=== PATIENT | male | born 1935 | race Caucasian/White ===

== ENCOUNTER 2020-06-27 22:38 | Emergency (ER) | payer MEDICARE, OTHER, SELFPAY ==
[2020-06-27 22:41] VITALS: BP 117/74; BP 126/57; PULSE 83; PULSE 97; RESP 16; TEMP 37.1; O2SAT 90; O2SAT 91; BMI 20.4
--- NOTE | 2020-06-27 22:47 | ED.CHESTPAIN ---
HPI - Chest Pain General Chief Complaint: Abdominal Pain Stated Complaint: luq pain Time Seen by Provider: 06/27/20 22:47 Source: EMS and old records reviewed Mode of arrival: EMS Limitations: other (vague and poor historian) History of Present Illness MD complaint: chest pain Pertinent past history: other (renal cancer, COPD O2 dependent, hx of pneumonia) Onset (ago): day(s) (upon waking today) Timing of current episode: constant Prior episodes: No Onset: during rest Pain location: left chest Pain radiation: none Severity: moderate Quality: heaviness Relieving factors: nothing Exacerbating factors: nothing Context: recent illness Associated symptoms: dyspnea Treatment prior to arrival: oxygen (O2 increased to 4L NC due to lower O2 sats) Related Data Allergies Allergy/AdvReac Type Severity Reaction Status Date / Time No Known Allergies Allergy Unverified 05/22/20 15:20 [No Known Allergies*] Review of Systems Review of Systems: Constitutional : No Weight loss, No Fever, No Chills ENT/Mouth : No sore throat, No Rhinorrhea Eyes: No Eye Pain, No Swelling Cardiovascular : pos Chest Pain, pos SOB, no Dyspnea on Exertion, No Orthopnea, No Edema, No Palpitations Respiratory : No Cough, No Sputum Gastrointestinal : no Nausea, No Vomiting, No Diarrhea, No abdominal Pain, No Hematochezia, No Melena Genitourinary : No Dysuria, No Urinary Frequency Musculoskeletal : No joint pain, No Myalgias, No Joint Swelling Skin : No Skin Lesions, No rash Neuro : No Weakness, No Numbness, No Dizziness, No Headache Psych : No Anxiety/Panic, No Depression Heme/Lymph: No Bruising, No Lymphadenopathy Endocrine : No Polyuria, No Polydipsia All other systems reviewed and are negative [facility] Past Medical History Medical History (Updated 06/28/20 @ 01:01 by Genesis Waller DO) Cirrhosis COPD (chronic obstructive pulmonary disease) Diabetes Emphysema of lung Heart block AV second degree HTN (hypertension) Legally blind Renal carcinoma Respiratory failure Social History Social History (Updated 06/27/20 @ 22:49 by Genesis Waller DO) Smoking Status: Former smoker Use of substances other than those prescribed or required for medical reasons: No Advance Directives: No Advance Directives Information Provided: No Physical Exam Vital Signs: Vital Signs: Vital Signs Temp Pulse Resp BP Pulse Ox 06/27/20 22:41 98.8 F 83 16 126/57 L 91 L Body Mass Index 20.4 Appearance: Alert. Oriented X3. No acute distress. Eyes: Pupils equal, round and reactive to light. ENT: Pharynx normal. Neck: Normal inspection. Neck supple. CVS: Normal heart rate and rhythm. Pulses normal. holding L lower ribs but no pain to palpation Respiratory: No respiratory distress. Breath sounds decreased bilaterally Abdomen: Soft and nontender. Skin: Skin warm and dry. Normal skin color. Normal skin turgor. Extremities: No lower extremity edema. No calf ttp Neuro: Oriented X 3. No motor deficit. No sensory deficit. Course Course Course Narrative: signed out to Dr. Louis pending CTA result and reassessment, troponin ordered for 2pm symptoms started early in the AM MDM - Chest Pain MDM Narrative Medical decision making narrative: 85 yo male with hx of COPD on home O2, pneumonia, renal cancer with bony mets and to lung here with L sided chest pain will need labs, CTA for PE/mass/mets, IV morphine for pain, steroids, nebulizer, dispo per results and findings. Lab Data Result diagrams: 06/27/20 23:19 06/27/20 23:19 Labs: Lab Results 06/27/20 06/27/20 06/27/20 Range/Units 23:19 23:19 23:19 WBC 6.7 (4.8-10.8) X10*3/uL RBC 4.16 L (4.60-5.80) X10*6/uL Hgb 11.2 L (14.0-18.0) g/dl Hct 36.1 L (42-52) % MCV 86.8 (80-98) fL MCH 26.9 L (27.0-33.0) pg MCHC 31.0 (31.0-36.0) g/dl RDW 16.6 H (11.0-16.0) % Plt Count 171 (160-400) X10*3/uL MPV 10.5 (9.4-12.4) fL Immature Gran % (Auto) 0.4 (0.0-0.4) % Neut % (Auto) 69.5 (45-73) % Lymph % (Auto) 21.2 (20-40) % [place] % (Auto) 7.6 (2-11) % Eos % (Auto) 1.0 (0-4) % Baso % (Auto) 0.3 (0-2) % Lymph # (Auto) 1.4 (1.2-4.9) X10*3/uL [place] # (Auto) 0.5 (0.1-1.2) X10*3/uL Eos # (Auto) 0.1 (0.0-0.4) X10*3/uL Baso # (Auto) 0.0 (0.0-0.2) X10*3/uL Abs Immat Gran (auto) 0.03 (0.00-0.03) X10*3/uL Absolute Neuts (auto) 4.7 (2.0-8.3) X10*3/uL Absolute Nucleated RBC 0.000 (0.0-0.012) X10*3/uL Nucleated RBC % (auto) 0.0 (0.0-0.2) /100WBC PT (10.8-13.0) SEC INR (0.9-1.1) APTT (24.1-38.0) SEC VBG pH (7.32-7.43) VBG pCO2 mmhg VBG Oxygen Liters/Min VBG pO2 mmhg VBG HCO3 mmol/L VBG O2 Saturation % VBG Base Excess mmol/L Sodium 141 (135-145) mmol/L Potassium 5.0 (3.3-5.1) mmol/l Chloride 107 (96-108) mmol/L Carbon Dioxide 27 (22-29) mmol/L Anion Gap 12 (12-20) BUN 16 (9-16) mg/dL Creatinine 0.85 (0.5-1.4) mg/dL Estim Creat Clear Calc 61.2 Estimated GFR > 60 Random Glucose 88 (60-115) mg/dL Lactic Acid (0.5-2.0) mmol/L Calcium 8.4 (8.4-10.2) mg/dL Magnesium (1.6-2.6) mg/dL Total Bilirubin (0.0-1.0) mg/dL Direct Bilirubin (0.0-0.5) mg/dL AST (5-37) U/L ALT (0-40) U/L Alkaline Phosphatase (39-117) U/L Troponin I High Sens (<3.5-35.0) ng/L B-Natriuretic Peptide 294 H (<100) pg/mL Total Protein (6.5-8.0) g/dL Albumin (3.5-5.0) g/dL Urine Color Urine Appearance Urine pH (5.0-8.0) Ur Specific Barney (1.005-1.025) Urine Protein (NEG-TRACE) MG/DL Urine Glucose (UA) (NEG) MG/DL Urine Ketones (NEG) MG/DL Urine Blood (NEG) Urine Nitrite (NEG) Ur Leukocyte Esterase (NEG) Urine RBC (0) /HPF Urine WBC (0-4) /HPF Ur Squamous Epith Cells /LPF Urine Bacteria /LPF 06/27/20 06/27/20 06/27/20 Range/Units 23:19 23:19 23:19 WBC (4.8-10.8) X10*3/uL RBC (4.60-5.80) X10*6/uL Hgb (14.0-18.0) g/dl Hct (42-52) % MCV (80-98) fL MCH (27.0-33.0) pg MCHC (31.0-36.0) g/dl RDW (11.0-16.0) % Plt Count (160-400) X10*3/uL MPV (9.4-12.4) fL Immature Gran % (Auto) (0.0-0.4) % Neut % (Auto) (45-73) % Lymph % (Auto) (20-40) % [place] % (Auto) (2-11) % Eos % (Auto) (0-4) % Baso % (Auto) (0-2) % Lymph # (Auto) (1.2-4.9) X10*3/uL [place] # (Auto) (0.1-1.2) X10*3/uL Eos # (Auto) (0.0-0.4) X10*3/uL Baso # (Auto) (0.0-0.2) X10*3/uL Abs Immat Gran (auto) (0.00-0.03) X10*3/uL Absolute Neuts (auto) (2.0-8.3) X10*3/uL Absolute Nucleated RBC (0.0-0.012) X10*3/uL Nucleated RBC % (auto) (0.0-0.2) /100WBC PT 16.3 H (10.8-13.0) SEC INR 1.4 H (0.9-1.1) APTT 36.7 (24.1-38.0) SEC VBG pH (7.32-7.43) VBG pCO2 mmhg VBG Oxygen Liters/Min VBG pO2 mmhg VBG HCO3 mmol/L VBG O2 Saturation % VBG Base Excess mmol/L Sodium (135-145) mmol/L Potassium (3.3-5.1) mmol/l Chloride (96-108) mmol/L Carbon Dioxide (22-29) mmol/L Anion Gap (12-20) BUN (9-16) mg/dL Creatinine (0.5-1.4) mg/dL Estim Creat Clear Calc Estimated GFR Random Glucose (60-115) mg/dL Lactic Acid 1.3 (0.5-2.0) mmol/L Calcium (8.4-10.2) mg/dL Magnesium 2.2 (1.6-2.6) mg/dL Total Bilirubin 0.6 (0.0-1.0) mg/dL Direct Bilirubin 0.3 (0.0-0.5) mg/dL AST 19 (5-37) U/L ALT 21 (0-40) U/L Alkaline Phosphatase 166 H (39-117) U/L Troponin I High Sens (<3.5-35.0) ng/L B-Natriuretic Peptide (<100) pg/mL Total Protein 5.6 L (6.5-8.0) g/dL Albumin 3.1 L (3.5-5.0) g/dL Urine Color Urine Appearance Urine pH (5.0-8.0) Ur Specific Barney (1.005-1.025) Urine Protein (NEG-TRACE) MG/DL Urine Glucose (UA) (NEG) MG/DL Urine Ketones (NEG) MG/DL Urine Blood (NEG) Urine Nitrite (NEG) Ur Leukocyte Esterase (NEG) Urine RBC (0) /HPF Urine WBC (0-4) /HPF Ur Squamous Epith Cells /LPF Urine Bacteria /LPF 1006/27/20 06/28/20 Range/Units 23:19 23:19 01:01 WBC (4.8-10.8) X10*3/uL RBC (4.60-5.80) X10*6/uL Hgb (14.0-18.0) g/dl Hct (42-52) % MCV (80-98) fL MCH (27.0-33.0) pg MCHC (31.0-36.0) g/dl RDW (11.0-16.0) % Plt Count (160-400) X10*3/uL MPV (9.4-12.4) fL Immature Gran % (Auto) (0.0-0.4) % Neut % (Auto) (45-73) % Lymph % (Auto) (20-40) % [place] % (Auto) (2-11) % Eos % (Auto) (0-4) % Baso % (Auto) (0-2) % Lymph # (Auto) (1.2-4.9) X10*3/uL [place] # (Auto) (0.1-1.2) X10*3/uL Eos # (Auto) (0.0-0.4) X10*3/uL Baso # (Auto) (0.0-0.2) X10*3/uL Abs Immat Gran (auto) (0.00-0.03) X10*3/uL Absolute Neuts (auto) (2.0-8.3) X10*3/uL Absolute Nucleated RBC (0.0-0.012) X10*3/uL Nucleated RBC % (auto) (0.0-0.2) /100WBC PT (10.8-13.0) SEC INR (0.9-1.1) APTT (24.1-38.0) SEC VBG pH 7.39 (7.32-7.43) VBG pCO2 48 mmhg VBG Oxygen Liters/Min TNP VBG pO2 45 mmhg VBG HCO3 29 mmol/L VBG O2 Saturation 78.2 % VBG Base Excess 3.1 mmol/L Sodium (135-145) mmol/L Potassium (3.3-5.1) mmol/l Chloride (96-108) mmol/L Carbon Dioxide (22-29) mmol/L Anion Gap (12-20) BUN (9-16) mg/dL Creatinine (0.5-1.4) mg/dL Estim Creat Clear Calc Estimated GFR Random Glucose (60-115) mg/dL Lactic Acid (0.5-2.0) mmol/L Calcium (8.4-10.2) mg/dL Magnesium (1.6-2.6) mg/dL Total Bilirubin (0.0-1.0) mg/dL Direct Bilirubin (0.0-0.5) mg/dL AST (5-37) U/L ALT (0-40) U/L Alkaline Phosphatase (39-117) U/L Troponin I High Sens 11.1 (<3.5-35.0) ng/L B-Natriuretic Peptide (<100) pg/mL Total Protein (6.5-8.0) g/dL Albumin (3.5-5.0) g/dL Urine Color YELLOW Urine Appearance CLEAR Urine pH 8.5 H (5.0-8.0) Ur Specific Barney 1.020 (1.005-1.025) Urine Protein NEG (NEG-TRACE) MG/DL Urine Glucose (UA) NEG (NEG) MG/DL Urine Ketones NEG (NEG) MG/DL Urine Blood NEG (NEG) Urine Nitrite NEG (NEG) Ur Leukocyte Esterase NEG (NEG) Urine RBC 0-2 (0) /HPF Urine WBC 0-2 (0-4) /HPF Ur Squamous Epith Cells TRACE /LPF Urine Bacteria TRACE /LPF ECG Data ECG #1: Attestation: I personally reviewed and interpreted this ECG as follows: ECG interpretation date: 06/27/20 ECG interpretation time: 23:06 Interpretation: Rate: 72 , PACs, PVCs Rhythm: normal Omega: left Normal P waves. 1st degree AVB Normal QRS complex. ST T wave : nonspecific qTC: normal prior studies:no acute The study has been interpreted contemporaneously by me. . Discharge Plan Discharge Clinical Impression: Chest pain Qualifiers: Chest pain type: unspecified Qualified Code(s): R07.9 - Chest pain, unspecified
--- NOTE | 2020-06-27 22:51 | ECG_ITS ---
Test Reason : RIB PAIN Blood Pressure : / mmHG Vent. Rate : 072 BPM Atrial Rate : 067 BPM P-R Int : 264 ms QRS Dur : 082 ms QT Int : 392 ms P-R-T Axes : 081 -01 -09 degrees QTc Int : 429 ms Sinus rhythm with 1st degree A-V block with Premature atrial complexes with Aberrant conduction Low voltage QRS Borderline ECG When compared with ECG of 22-APR-2020 16:16, Premature ventricular complexes are no longer Present Aberrant conduction is now Present Nonspecific T wave abnormality no longer evident in Anterior leads QT has shortened Heart rate has decreased Referred By: Genesis Waller Electronically Signed By:LEANNE LI MD
[2020-06-27 23:29] LABS: MANUAL DIFF FLAG NO
[2020-06-27 23:30] LABS: Basophils Percent Auto 0.3 % (0-2); Eosinophils Absolute Auto 0.1 X10*3/uL (0.0-0.4); Hematocrit 36.1 % (42-52); Hemoglobin 11.2 g/dl (14.0-18.0); Imm Gran Abs Auto 0.03 X10*3/uL (0.00-0.03); Imm Gran Pct Auto 0.4 % (0.0-0.4); Lymphocytes Absolute Auto 1.4 X10*3/uL (1.2-4.9); Lymphocytes Percent Auto 21.2 % (20-40); Mean Corpuscular Hemoglobin 26.9 pg (27.0-33.0); Mean Corpuscular Volume 86.8 fL (80-98); Mean Platelet Volume 10.5 fL (9.4-12.4); Monocytes Absolute Auto 0.5 X10*3/uL (0.1-1.2); Monocytes Percent Auto 7.6 % (2-11); Neutrophils Absolute Auto 4.7 X10*3/uL (2.0-8.3); Neutrophils Percent Auto 69.5 % (45-73); Platelet Count 171 X10*3/uL (160-400); Red Blood Count 4.16 X10*6/uL (4.60-5.80); Red Cell Distribution Width 16.6 % (11.0-16.0); White Blood Count 6.7 X10*3/uL (4.8-10.8)
[2020-06-27 23:33] LABS: Base Excess VBG 3.1 mmol/L; HCO3 VBG 29 mmol/L; Oxygen Saturation VBG 78.2 %; PCO2 VBG 48 mmhg; PO2 VBG 45 mmhg; pH VBG 7.39 (7.32-7.43)
[2020-06-27 23:39] LABS: INTERNATIONAL NORM RATIO 1.4 (0.9-1.1); Prothrombin Time 16.3 SEC (10.8-13.0)
[2020-06-27] MEDS: Albuterol Sulfate (0.083%) 2.5 MG/3 ML VIAL.NEB 5 MG INHALE (23:40)
[2020-06-27 23:42] LABS: Partial Thromboplastin Time 36.7 SEC (24.1-38.0)
[2020-06-27 23:55] LABS: Lactic Acid 1.3 mmol/L (0.5-2.0)
[2020-06-27 23:58] LABS: Alanine Aminotransferase 21 U/L (0-40); Albumin Level 3.1 g/dL (3.5-5.0); Alkaline Phosphatase 166 U/L (39-117); Anion Gap 12 (12-20); Aspartate Amino Transferase 19 U/L (5-37); Bilirubin Direct 0.3 mg/dL (0.0-0.5); Bilirubin Total 0.6 mg/dL (0.0-1.0); Blood Urea Nitrogen 16 mg/dL (9-16); Calcium 8.4 mg/dL (8.4-10.2); Carbon Dioxide 27 mmol/L (22-29); Chloride 107 mmol/L (96-108); Creatinine Clr Calc Pharmacy 61.2; Estimated Glomerular Filt Rate > 60; Glucose Random 88 mg/dL (60-115); Magnesium 2.2 mg/dL (1.6-2.6); Sodium 141 mmol/L (135-145); Total Protein 5.6 g/dL (6.5-8.0)
[2020-06-28 00:01] LABS: B Type Natriuretic Peptide 294 pg/mL (<100); Troponin-I High Sensitivity 11.1 ng/L (<3.5-35.0)
--- NOTE | 2020-06-28 00:04 | CT_ITS ---
EXAMINATION: CT ANGIOGRAM OF THE CHEST WITH AND WITHOUT CONTRAST (CT PULMONARY ANGIOGRAM FOR PE) CLINICAL INFORMATION: Reason for Exam L sided chest pain hx of renal cancer with mets COMPARISON: 04/22/2020 TECHNIQUE: Prior to contrast administration, noncontrast localization images were obtained. Subsequently, multidetector volumetric imaging was performed from the thoracic inlet to below the diaphragms following the administration of 65 mL Omnipaque 350 intravenous contrast. No contrast reaction reported Sagittal, coronal, and MIP oblique sagittal reformatted images were obtained on the CT workstation, uploaded to PACS, and reviewed. This CT examination was performed using dose optimization techniques as appropriate, variously including the following: *Automated exposure control *Adjustment of mA and/or kV according to patient size (this includes techniques or standardized protocols for targeted exams where dose is matched to indication/reason for exam; i.e. extremities or head) *Use of iterative reconstruction technique Total exam dose-length product 318 mGy-cm FINDINGS: QUALITY OF STUDY/CONTRAST BOLUS: Satisfactory. PULMONARY ARTERIES: Dilated main pulmonary artery measuring approximately 3.4 cm in diameter, suggesting pulmonary artery hypertension. No acute central or segmental pulmonary emboli. There are a few linear, weblike opacities in the pulmonary arteries such as in the right lower lobe in the lingula, favoring sequelae of old emboli. THORACIC AORTA: No aneurysm or dissection. There is atherosclerotic calcification along the aorta. LUNG: Mild dependent atelectasis bilaterally, without additional consolidation. Mild emphysema. There is a low-density nodular focus along the left major fissure measuring 2.0 x 1.5 cm which appears to be a fluid density, suggesting trace loculated pleural fluid. PLEURA: No pleural effusion or pneumothorax. MEDIASTINUM: The visualized thyroid gland is unremarkable. Scattered subcentimeter mediastinal lymph nodes are seen without significant adenopathy. Cardiac size is within normal limits; no pericardial effusion. Coronary artery calcifications are present. CHEST WALL/AXILLA: No axillary or internal mammary lymphadenopathy. OSSEOUS STRUCTURES: Degenerative changes are noted in the spine. UPPER ABDOMEN: Cholelithiasis is noted. Visualized portion of the spleen is enlarged. Small right renal cyst is present. Left renal mass is not fully visualized on this exam. There is partially visualized left-sided retroperitoneal lymphadenopathy. CT/CT angio chest PE protocol IMPRESSION: 1. No acute pulmonary embolus identified. Sequelae of old emboli as noted above. Dilated main pulmonary artery suggesting pulmonary artery hypertension. 2. Low-density nodular focus along the left major fissure suggesting trace loculated pleural fluid. 3. Partially visualized left renal mass and retroperitoneal lymphadenopathy. 4. Splenomegaly. VTE: negative
[2020-06-28 01:17] LABS: Glucose Urine UA NEG (NEG); Leukocyte Esterase Urine NEG (NEG); Nitrite Urine NEG (NEG); PH 8.5 (5.0-8.0); Urine Blood NEG (NEG); Urine Ketones NEG (NEG); Urine Protein NEG (NEG-TRACE)
[2020-06-28 01:22] LABS: Appearance Urine CLEAR; Color Urine YELLOW
[2020-06-28 01:35] LABS: Bacteria Urine TRACE /LPF; RBC Urine 0-2 /HPF (0); Squamous Epithelial Cell Urine TRACE /LPF; WBC Urine 0-2 /HPF (0-4)
[2020-06-28 01:47] LABS: SARS COV2 PCR INHOUSE NEGATIVE (Negative)
[2020-06-28] MEDS: iohexoL 350 MG/ML 100 ML INFUS..BTL 65 ML IV (01:48)
[2020-06-28 02:44] LABS: Troponin-I High Sensitivity 12.1 ng/L (<3.5-35.0)
--- NOTE | 2020-06-28 02:45 | PC.NURSE ---
pt resting in bed, no distress while in ER but coughing up clear phlem.
[2020-06-28 02:53] VITALS: BP 115/66; PULSE 70; RESP 20; O2SAT 95
--- NOTE | 2020-06-28 03:05 | PC.NURSE ---
pt has difficulty with vision, needed assistance finding correct button for call gallagher. pt asked for something to eat, given sandwich, also needed assistance with finding food on tray table.
--- NOTE | 2020-06-28 03:06 | PC.NURSE ---
md at bedside, plans to discharge pt home. pt lives in apartment with . pt will need ambulance home, oxygen dependent.
== END 2020-06-28 05:58 | disposition home or self-care (01) ==
PROVIDERS: Emergency Provider Emergency Medicine
DX: R07.9 Chest pain, unspecified (principal); Z20.828 Contact with and (suspected) exposure to other viral communicable diseases; E11.9 Type 2 diabetes mellitus without complications; I10 Essential (primary) hypertension; Z85.53 Personal history of malignant neoplasm of renal pelvis; Z87.891 Personal history of nicotine dependence
CPT/HCPCS: 36415; 71275; 80048; 80076; 81001; 81003; 82803; 83605; 83735; 83880; 84484; 85025; 85610; 85730; 87040; 87635; 93005; 96374; 96375; 99283; 99284

== ENCOUNTER 2020-07-08 11:03 | Outpatient (RCR) | payer MEDICARE, OTHER, SELFPAY ==
[2020-07-08 11:14] VITALS: BP 108/59; PULSE 89; RESP 20; TEMP 37; O2SAT 90; BMI 19.8
--- NOTE | 2020-07-08 13:24 | PM.HEMONCPN ---
Medical Summary - Medical Summary Chief complaint: Follow-up Medical Summary: Metastatic kidney cancer diagnosed in August 2018. Admitted in July 2018 with complaints of flank pain and hematuria. CT abdomen/pelvis with contrast performed 07/28/18 showed 5.4 cm mass in the upper pole of left kidney and left upper renal collecting system concerning for renal cell carcinoma versus transitional cell carcinoma with parenchymal invasion. Exophytic soft tissue extending from the left kidney into the left adrenal gland compatible with malignant extension of disease. Nodular thickening of posterior left bladder wall near the UV junction. Bulky pathological lymphadenopathy in the retroperitoneum left-sided greater, left periaortic lymph node measuring 2.3x1.9 cm. On 08/04/18 he had cystoscopy and left retrograde ureteroscopy and biopsy of a left renal pelvis which showed poorly differentiated carcinoma favoring renal primary. On 07/31/18 he had FNA of left renal mass which was also positive for malignancy consistent with renal cell carcinoma. Bone scan showed abnormality in T11 vertebra which was suspicious but no corresponding CT abnormality was present. Right sixth rib abnormality corresponded to a fracture, few additional nonspecific abnormalities all likely arthritic in etiology.PET scan performed 08/24/18 showed FDG avid left upper pole renal mass with intense activity, FDG avid left retroperitoneal and left retrocrural nodes, FDG avid left liver lobe metastasis, several FDG avid osseous metastasis. Immunotherapy with nivolumab plus ipilimumab was attempted, pt developed infusion reaction to Nivolumab with severe disabling back pain. Infusion was stopped and IV narcotics was administered. After discussion with patient, we decided not to rechallenge him. Patient started Pazopanib 800 mg daily from 09/01/18. Discontinued permanently end of September 2018 because of severe hepatotoxicity. Trial of cabozantinib, developed mental status changes. workup for TIA/stroke was negative. Brain MRI was negative. Interval History Interval history: Patient is here for in follow-up. He reports doing well and denies any interim medical complaints although he was briefly seen in the emergency room in May for shortness of breath. At this time, he denies chest pain, cough or shortness of breath. He has lost some weight, he attributes this to unpalatable food at residential facility. He is not very happy living in assisted living, he continues to take care of his who has Alzheimer's disease. [facility] Medical History: Medical History (Last Updated 07/08/20 @ 08:47 by Arianne Schneider) Cardiac arrhythmia Cirrhosis COPD (chronic obstructive pulmonary disease) Diabetes Emphysema of lung Heart block AV second degree History of bladder cancer HTN (hypertension) Kidney stones Legally blind Macular degeneration Renal carcinoma Respiratory failure Home Medications and Allergies Home Medications Medication Instructions Recorded Confirmed Type albuterol sulfate INHALATION 07/08/20 History amlodipine 1 tab PO DAILY 07/08/20 07/08/20 History aspirin [Aspir-81] 81 mg PO DAILY 07/08/20 07/08/20 History ipratropium-albuterol ml INHALATION 07/08/20 History metoprolol succinate 1 tab PO DAILY 07/08/20 07/08/20 History Allergies Allergy/AdvReac Type Severity Reaction Status Date / Time No Known Allergies Allergy Unverified 05/22/20 15:20 [No Known Allergies*] Exam Vital signs: Vital Signs Temp 98.6 F 07/08/20 11:14 Pulse 89 07/08/20 11:14 Resp 20 07/08/20 11:14 BP 108/59 L 07/08/20 11:14 Pulse Ox 90 L 07/08/20 11:14 Intake & Output 07/07/20 07/08/20 07/08/20 18:59 06:59 18:59 Other: Weight 66.4 kg Weight 66.4 kg Body Mass Index 19.8 Progress Note: A/P (1) Kidney malignancy Status: Acute Assessment and plan: 1. This is an 85-year-old gentleman with metastatic renal cell carcinoma. He did not tolerate immunotherapy or TKI therapy. He has been doing well without any treatment. ? Spontaneous regression of tumor. He had a CT scan in May 2019 at [facility] which did not see any renal masses according to discharge summary from [facility]. There was only bilateral renal cysts, left upper lobe lung mass, pseudotumor. MRI chest showed proteinaceous fluid rather than neoplasm. Echocardiogram showed moderately reduced LV function, EF 35-40%. Severely reduced RV function with severe right atrial dilatation. Liver cirrhosis with portal hypertension and splenomegaly. He had blood counts in May which looks stable. Chest x-ray recently showed no acute disease. He continues to do quite well without any treatment. Follow-up in 4 months. - Time Spent With Patient Total time spent is greater than 50% in coordination of care (as documented) at patient's floor/unit and/or counseling patient: 15 - 24 minutes
--- NOTE | 2020-10-08 16:22 | MHC.HEMONCSW ---
[facility] REFERRAL GIVEN TO MICHEL AT [facility] PER DR. ZAKI HAWKINS. DR Bonilla SPOKE WITH PATIENTS DAUGHTER RIGO HERRERA [phone].
== END 2020-10-13 | disposition home or self-care (01) ==
LOC: HO.ONC 11:03
PROVIDERS: PCP Internal Medicine; Visit Provider Internal Medicine
DX: C64.2 Malignant neoplasm of left kidney, except renal pelvis (principal); R91.8 Other nonspecific abnormal finding of lung field
CPT/HCPCS: 99213

== ENCOUNTER 2020-08-02 20:27 | Emergency (ER) | payer MEDICARE, OTHER, SELFPAY ==
[2020-08-02 20:36] VITALS: BP 106/51; BP 121/75; PULSE 79; PULSE 89; RESP 18; TEMP 36.8; O2SAT 93; O2SAT 94; BMI 17.9
[2020-08-02 20:42] VITALS: BP 119/63; PULSE 78; RESP 18; O2SAT 97
--- NOTE | 2020-08-02 20:42 | XR_ITS ---
EXAMINATION: XR CHEST CLINICAL INFORMATION: Chest pain COMPARISON: 04/22/2020. Chest CT 06/28/2020. TECHNIQUE: Frontal view of the chest was obtained. FINDINGS: There is a chronic interstitial prominence with elevation of the left hemidiaphragm which does not appear significantly changed. Prominent costochondral calcifications, and atherosclerotic calcifications of the aortic arch. There is no consolidation, edema, or definite pleural effusion. Stable cardiomediastinal silhouette. XR/XR chest 1V IMPRESSION: Chronic interstitial changes with no new abnormality.
--- NOTE | 2020-08-02 20:42 | ECG_ITS ---
Test Reason : CHEST PAIN Blood Pressure : / mmHG Vent. Rate : 083 BPM Atrial Rate : 087 BPM P-R Int : 000 ms QRS Dur : 084 ms QT Int : 398 ms P-R-T Axes : 080 -21 -47 degrees QTc Int : 467 ms Sinus rhythm with A-V dissociation and Accelerated Junctional rhythm with frequent Premature ventricular complexes Low voltage QRS Nonspecific ST and T wave abnormality Abnormal ECG When compared with ECG of 27-JUN-2020 23:03, Junctional rhythm has replaced Sinus rhythm Referred By: Generic ED Physician Electronically Signed By:LEANNE LI MD
--- NOTE | 2020-08-02 20:52 | ED_ITS ---
HPI - Chest Pain General Chief Complaint: Chest Pain Stated Complaint: chest pain Time Seen by Provider: 08/02/20 20:52 Source: patient Mode of arrival: EMS History of Present Illness HPI narrative: This is an 85-year-old male with significant multiple medical comorbidities who presents with onset of chest pain that he describes as an ache , that comes and goes and was not associated with any fevers, chills, shortness of breath, nausea, dizziness, diaphoresis. In addition, he denies that it radiates anywhere and describes it is being at the left lower anterior chest and denies having fallen or any trauma to the area. Related Data Home Medications Medication Instructions Recorded Confirmed albuterol sulfate INHALATION 07/08/20 amlodipine 1 tab PO DAILY 07/08/20 07/08/20 aspirin [Aspir-81] 81 mg PO DAILY 07/08/20 07/08/20 ipratropium-albuterol ml INHALATION 07/08/20 metoprolol succinate 1 tab PO DAILY 07/08/20 07/08/20 Allergies Allergy/AdvReac Type Severity Reaction Status Date / Time No Known Allergies Allergy Verified 08/02/20 20:36 [No Known Allergies*] Review of Systems Review of Systems: Pertinent positives and negatives as stated in HPI and 10 point review of systems otherwise negative. PMFSH Past Medical History Source: nursing notes reviewed Medical History Cardiac arrhythmia Cirrhosis COPD (chronic obstructive pulmonary disease) Diabetes Emphysema of lung Heart block AV second degree History of bladder cancer HTN (hypertension) Kidney stones Legally blind Macular degeneration Renal carcinoma Respiratory failure Social History Social History Alcohol intake: never Smoking Status: Never smoker Use of substances other than those prescribed or required for medical reasons: No Advance Directives: No Advance Directives Information Provided: Yes Physical Exam Vital Signs: Vital Signs: Last Vital Signs Temp 97.9 F 08/02/20 22:21 Pulse 77 08/03/20 00:00 Resp 20 08/03/20 00:00 BP 130/60 08/03/20 00:00 Pulse Ox 94 08/03/20 00:00 Body Mass Index 17.9 VITAL SIGNS: Reviewed. GENERAL: Well developed, well nourished, in no acute distress. HEAD: Normocephalic/atraumatic, EYES: PERRLA, EOMI intact without pain, no nystagmus/pallor/icterus noted EARS: Ext canals without abnormality, TMs non-bulging and non-erythematous NOSE: Nares patent bilateral OROPHARYNX: no oral lesions noted, posterior pharynx clear and non-erythematous without noted tonsillar enlargement/erythema/exudates NECK: Supple, no adenopathy LUNGS: Normal breath sounds. No adventitious sounds or accessory muscle use. SpO2<94>on 4L at baseline CARDIOVASCULAR: Regular rate and rhythm without noted murmurs, no JVD or lower extremity edema. ABDOMEN: Soft, non-tender, non-distended with bowel sounds. No rigidity. No guarding. No palpable masses or hernias noted MUSCULOSKELETAL: No tenderness, deformities, or effusions noted on gross inspection. EXTREMITIES: No cyanosis, clubbing or edema. SKIN: Inspection of the skin reveals no rashes, ulcerations, jaundice, pallor, or petechiae. NEUROLOGIC: Alert and oriented x 4. Strength and sensation to light touch were grossly intact x 4. Course Course Course Narrative: This is an 85-year-old male with history and clinical presentation suggestive of possible pneumonia, acid reflux, and less likely cardiac ischemia. On review of all investigations there is no evidence of infection and patient has chronically stable anemia without significant findings on chemistries. The noted mild elevation of the high sensitivity troponin is actually consistent with prior values when compared to 06/28/2020, however 2nd troponin will be obtained and of note there were no acute EKG changes when compared to prior. Second troponin was found to be lateral and patient is asymptomatic at this time. All results and findings were discussed with patient at bedside and he is wishing to return home as well he was reassured that there are no findings to suggest that this was an acute coronary event and instead may be secondary to acid reflux or inflammation of the rib area. MDM - Chest Pain Lab Data Result diagrams: 08/02/20 20:53 08/02/20 20:53 Labs: Lab Results 08/02/20 08/02/20 08/02/20 Range/Units 20:53 20:53 20:53 WBC 7.3 (4.8-10.8) X10*3/uL RBC 3.77 L (4.60-5.80) X10*6/uL Hgb 10.1 L (14.0-18.0) g/dl Hct 32.9 L (42-52) % MCV 87.3 (80-98) fL MCH 26.8 L (27.0-33.0) pg MCHC 30.7 L (31.0-36.0) g/dl RDW 17.6 H (11.0-16.0) % Plt Count 172 (160-400) X10*3/uL MPV 9.9 (9.4-12.4) fL Immature Gran % (Auto) 0.4 (0.0-0.4) % Neut % (Auto) 69.8 (45-73) % Lymph % (Auto) 19.4 L (20-40) % [place] % (Auto) 8.8 (2-11) % Eos % (Auto) 1.2 (0-4) % Baso % (Auto) 0.4 (0-2) % Lymph # (Auto) 1.4 (1.2-4.9) X10*3/uL [place] # (Auto) 0.6 (0.1-1.2) X10*3/uL Eos # (Auto) 0.1 (0.0-0.4) X10*3/uL Baso # (Auto) 0.0 (0.0-0.2) X10*3/uL Abs Immat Gran (auto) 0.03 (0.00-0.03) X10*3/uL Absolute Neuts (auto) 5.1 (2.0-8.3) X10*3/uL Absolute Nucleated RBC 0.000 (0.0-0.012) X10*3/uL Nucleated RBC % (auto) 0.0 (0.0-0.2) /100WBC PT 16.2 H (10.8-13.0) SEC INR 1.4 H (0.9-1.1) APTT 35.3 (24.1-38.0) SEC Hold Blue Top SEE NOTE Sodium 143 (135-145) mmol/L Potassium 5.0 (3.3-5.1) mmol/l Chloride 106 (96-108) mmol/L Carbon Dioxide 29 (22-29) mmol/L Anion Gap 13 (12-20) BUN 17 H (9-16) mg/dL Creatinine 0.81 (0.5-1.4) mg/dL Estim Creat Clear Calc 63.1 Estimated GFR > 60 Random Glucose 114 (60-115) mg/dL Calcium 8.0 L (8.4-10.2) mg/dL Troponin I High Sens (<3.5-35.0) ng/L Lipase 27 (8-78) U/L Urine Color Urine Appearance Urine pH (5.0-8.0) Ur Specific [place] (1.005-1.025) Urine Protein (NEG-TRACE) MG/DL Urine Glucose (UA) (NEG) MG/DL Urine Ketones (NEG) MG/DL Urine Blood (NEG) Urine Nitrite (NEG) Ur Leukocyte Esterase (NEG) Urine RBC (0) /HPF Urine WBC (0-4) /HPF Ur Squamous Epith Cells /LPF Urine Bacteria /LPF 08/02/20 08/02/20 08/02/20 Range/Units 20:53 22:30 23:52 WBC (4.8-10.8) X10*3/uL RBC (4.60-5.80) X10*6/uL Hgb (14.0-18.0) g/dl Hct (42-52) % MCV (80-98) fL MCH (27.0-33.0) pg MCHC (31.0-36.0) g/dl RDW (11.0-16.0) % Plt Count (160-400) X10*3/uL MPV (9.4-12.4) fL Immature Gran % (Auto) (0.0-0.4) % Neut % (Auto) (45-73) % Lymph % (Auto) (20-40) % [place] % (Auto) (2-11) % Eos % (Auto) (0-4) % Baso % (Auto) (0-2) % Lymph # (Auto) (1.2-4.9) X10*3/uL [place] # (Auto) (0.1-1.2) X10*3/uL Eos # (Auto) (0.0-0.4) X10*3/uL Baso # (Auto) (0.0-0.2) X10*3/uL Abs Immat Gran (auto) (0.00-0.03) X10*3/uL Absolute Neuts (auto) (2.0-8.3) X10*3/uL Absolute Nucleated RBC (0.0-0.012) X10*3/uL Nucleated RBC % (auto) (0.0-0.2) /100WBC PT (10.8-13.0) SEC INR (0.9-1.1) APTT (24.1-38.0) SEC Hold Blue Top Sodium (135-145) mmol/L Potassium (3.3-5.1) mmol/l Chloride (96-108) mmol/L Carbon Dioxide (22-29) mmol/L Anion Gap (12-20) BUN (9-16) mg/dL Creatinine (0.5-1.4) mg/dL Estim Creat Clear Calc Estimated GFR Random Glucose (60-115) mg/dL Calcium (8.4-10.2) mg/dL Troponin I High Sens 6.8 5.9 (<3.5-35.0) ng/L Lipase (8-78) U/L Urine Color YELLOW Urine Appearance CLEAR Urine pH 7.0 (5.0-8.0) Ur Specific [place] 1.025 (1.005-1.025) Urine Protein TRACE (NEG-TRACE) MG/DL Urine Glucose (UA) NEG (NEG) MG/DL Urine Ketones 5 (NEG) MG/DL Urine Blood 2+ H (NEG) Urine Nitrite NEG (NEG) Ur Leukocyte Esterase NEG (NEG) Urine RBC 5-9 H (0) /HPF Urine WBC 0 (0-4) /HPF Ur Squamous Epith Cells NONE /LPF Urine Bacteria TRACE /LPF ECG Data ECG #1: Attestation: I personally reviewed and interpreted this ECG as follows: Prior ECG tracings: available for review ( 06/27/2020 no acute changes on comparison) Interpretation: sinus rhythm, HR -83, no evidence of acute ischemia, but noted junctional rhythm with PVCs, QRS is within normal limits, QTC is within normal limits Discharge Plan Discharge Clinical Impression: Atypical chest pain Patient Disposition: Home, Self-Care Instructions: Chest Pain (ED) Additional Instructions: 1. Please resume all of your home medications as prescribed. 2. Please follow-up with your primary care provider and discuss the possibility of further evaluation with a referral to Cardiology. The patient and/or family acknowledge understanding of results (as applicable), diagnosis, treatment plan, need for follow up, and symptoms that should prompt a return to the emergency room. Prescriptions: No Action ipratropium-albuterol 0.5 mg-3 mg(2.5 mg base)/3 mL solution for nebulization inhalation RF: 0 albuterol sulfate 2.5 mg /3 mL (0.083 %) solution for nebulization inhalation RF: 0 amlodipine 5 mg tablet 1 tab PO DAILY RF: 0 aspirin [Aspir-81] 81 mg Tablet,Delayed Release (Dr/Ec) 81 mg PO DAILY RF: 0 metoprolol succinate 25 mg tablet extended release 24 hr 1 tab PO DAILY RF: 0 Referrals: Physician,Unknown [Primary Care Provider] - 2 days ( Further follow-up of suspected acid reflux versus costochondritis.)
[2020-08-02 20:59] LABS: Basophils Percent Auto 0.4 % (0-2); Eosinophils Absolute Auto 0.1 X10*3/uL (0.0-0.4); Eosinophils Percent Auto 1.2 % (0-4); Hematocrit 32.9 % (42-52); Hemoglobin 10.1 g/dl (14.0-18.0); Imm Gran Abs Auto 0.03 X10*3/uL (0.00-0.03); Imm Gran Pct Auto 0.4 % (0.0-0.4); Lymphocytes Absolute Auto 1.4 X10*3/uL (1.2-4.9); Lymphocytes Percent Auto 19.4 % (20-40); MANUAL DIFF FLAG NO; Mean Corpuscular HGB Conc 30.7 g/dl (31.0-36.0); Mean Corpuscular Hemoglobin 26.8 pg (27.0-33.0); Mean Corpuscular Volume 87.3 fL (80-98); Mean Platelet Volume 9.9 fL (9.4-12.4); Monocytes Absolute Auto 0.6 X10*3/uL (0.1-1.2); Monocytes Percent Auto 8.8 % (2-11); Neutrophils Absolute Auto 5.1 X10*3/uL (2.0-8.3); Neutrophils Percent Auto 69.8 % (45-73); Platelet Count 172 X10*3/uL (160-400); Red Blood Count 3.77 X10*6/uL (4.60-5.80); Red Cell Distribution Width 17.6 % (11.0-16.0); White Blood Count 7.3 X10*3/uL (4.8-10.8)
--- NOTE | 2020-08-02 21:00 | PC.NURSE ---
pt denies pain at this time. no sob noted. skin jaundice. provide orders entered and completed waiting lab results.
[2020-08-02 21:36] LABS: Anion Gap 13 (12-20); Blood Urea Nitrogen 17 mg/dL (9-16); Carbon Dioxide 29 mmol/L (22-29); Chloride 106 mmol/L (96-108); Creatinine Clr Calc Pharmacy 63.1; Estimated Glomerular Filt Rate > 60; Glucose Random 114 mg/dL (60-115); Sodium 143 mmol/L (135-145)
[2020-08-02 21:41] LABS: INTERNATIONAL NORM RATIO 1.4 (0.9-1.1); Prothrombin Time 16.2 SEC (10.8-13.0); Troponin-I High Sensitivity 6.8 ng/L (<3.5-35.0)
[2020-08-02 21:43] LABS: Partial Thromboplastin Time 35.3 SEC (24.1-38.0)
[2020-08-02 21:59] LABS: Lipase 27 U/L (8-78)
[2020-08-02 22:21] VITALS: BP 112/71; PULSE 92; RESP 22; TEMP 36.6; O2SAT 94
[2020-08-02 22:36] LABS: Glucose Urine UA NEG (NEG); Leukocyte Esterase Urine NEG (NEG); Nitrite Urine NEG (NEG); Specific Gravity - Urine 1.025 (1.005-1.025); Urine Blood 2+ (NEG); Urine Ketones 5 MG/DL (NEG); Urine Protein TRACE MG/DL (NEG-TRACE)
[2020-08-02 22:42] LABS: Appearance Urine CLEAR; Color Urine YELLOW
[2020-08-02 22:43] LABS: Bacteria Urine TRACE /LPF; WBC Urine 0 /HPF (0-4)
[2020-08-03] VITALS: BP 130/60; PULSE 77; RESP 20; O2SAT 94
[2020-08-03 00:28] LABS: Troponin-I High Sensitivity 5.9 ng/L (<3.5-35.0)
== END 2020-08-03 01:22 | disposition home or self-care (01) ==
PROVIDERS: Emergency Provider Student in an Organized Health Care Education/Training Program
DX: R07.89 Other chest pain (principal); I10 Essential (primary) hypertension; Z79.899 Other long term (current) drug therapy
CPT/HCPCS: 36415; 71045; 80048; 81001; 83690; 84484; 85025; 85610; 85730; 93005; 99284

== ENCOUNTER 2020-08-20 18:44 | Inpatient (IN) | payer MEDICARE, OTHER, SELFPAY ==
[2020-08-20 18:58] VITALS: BP 102/68; BP 126/45; PULSE 106; PULSE 97; RESP 16; TEMP 37.1; O2SAT 97; O2SAT 98; BMI 19.5
--- NOTE | 2020-08-20 19:12 | XR_ITS ---
EXAMINATION: XR CHEST CLINICAL INFORMATION: SOB. COMPARISON: Chest 08/02/2020 TECHNIQUE: Frontal view of the chest was obtained. FINDINGS: The lungs are hyperinflated with increase interstitial markings in both lower lobes and mid lung region, unchanged to previous study. There is elevated left hemidiaphragm. Heart size and pulmonary vascularity is normal. There is mild deformity of left lateral ribs, stable. XR/XR chest 1V IMPRESSION: Chronic interstitial changes most prominent in both lung bases and mid lung region. It is stable compared to 07/25/2020. There is interval no acute pneumonic process seen at this time.
--- NOTE | 2020-08-20 19:12 | ECG_ITS ---
Test Reason : SOB Blood Pressure : / mmHG Vent. Rate : 093 BPM Atrial Rate : 094 BPM P-R Int : 000 ms QRS Dur : 082 ms QT Int : 344 ms P-R-T Axes : 000 -29 -38 degrees QTc Int : 427 ms Sinus rhythm competing with juncitonal rhythm Low voltage QRS Nonspecific ST and T wave abnormality Abnormal ECG When compared with ECG of 02-AUG-2020 20:43, No significant changes seen Referred By: Bam Max Electronically Signed By:Owen Dimas
--- NOTE | 2020-08-20 19:21 | ED_ITS ---
HPI - SOB/Dyspnea General Chief Complaint: Dyspnea Stated Complaint: WEAKNESS X 2 DAYS, INCREASED SOB Time Seen by Provider: 08/20/20 18:50 Source: patient Mode of arrival: ambulatory Limitations: no limitations History of Present Illness HPI Narrative: Patient presents to ED for shortness of breath since this morni ng. Patient denies any chest pain, coughing, fever, chills, or increased swelling of lower extremities. Related Data Home Medications Medication Instructions Recorded Confirmed albuterol 90 mcg INHALATION Q4-5H PRN 08/20/20 08/20/20 amlodipine 5 mg PO DAILY 08/20/20 08/20/20 aspirin 81 mg PO DAILY 08/20/20 08/20/20 famotidine 20 mg PO DAILY 08/20/20 08/20/20 guaifenesin [Mucinex] 600 mg PO BID 08/20/20 08/20/20 metoprolol succinate 25 mg PO DAILY 08/20/20 08/20/20 sodium polystyrene sulfonate [SPS] 60 ml PO BID 08/20/20 08/20/20 Allergies Allergy/AdvReac Type Severity Reaction Status Date / Time No Known Allergies Allergy Verified 08/15/20 09:30 [No Known Allergies*] Review of Systems Constitutional: Constitutional: Reports as per HPI and Reports no additional constitutional complaints Eyes: Eyes: Reports as per HPI and Reports no additional eye complaints ENT: Reports system reviewed and no additional complaints, except as documented and Reports as per HPI Cardiovascular: Cardiovascular: Reports as per HPI, Reports no additional ca rdiovascular complaints, Denies chest pain, Denies chest pain at rest, Denies chest pain with activity, Denies Epigastric Pain, Reports dyspnea, Denies dysp linda on exertion, Denies orthopnea and Denies paroxysmal nocturnal dyspnea Respiratory: Respiratory: Reports as per HPI, Reports no additional respirat ory complaints, Reports dyspnea and Denies dyspnea on exertion Gastrointestinal: Gastrointestinal: Reports as per HPI and Reports no additional gastrointestinal complaints Genitourinary: Genitourinary: Reports no additional male genitourinary complaints and Reports as per HPI Musculoskeletal: Musculoskeletal: Reports no additional musculoskeletal complaints and Reports as per HPI Neurologic: Reports system reviewed and no additional complaints, except as documented and Reports as per HPI Psychiatric: Psychiatric: Reports no additional psychiatric complaints and Reports as per HPI [facility] Past Medical History Medical History Cardiac arrhythmia Cirrhosis COPD (chronic obstructive pulmonary disease) Diabetes Emphysema of lung Heart block AV second degree History of bladder cancer HTN (hypertension) Kidney stones Legally blind Macular degeneration Renal carcinoma Respiratory failure Surgical History No pertinent past surgical history Family History Family History Father No problems noted. Mother No problems noted. Social History Social History Alcohol intake: current Alcohol intake frequency: holidays/special occasions only Smoking Status: Former smoker Use of substances other than those prescribed or required for medical reasons: No Advance Directives: No Advance Directives Information Provided: Yes Physical Exam Vital Signs: Vital Signs: Last Vital Signs Temp 98.3 F 08/20/20 21:47 Pulse 78 08/20/20 21:47 Resp 18 08/20/20 21:47 BP 124/90 H 08/20/20 21:47 Pulse Ox 90 L 08/20/20 21:47 Body Mass Index 19.5 Const: General: cooperative, healthy appearing, comfortable, no acute distress, well developed, alert, awake and Physically active HENMT: Head: Yes normal to inspection, Yes No palpable skull fracture present, Yes normocephalic, No atraumatic, No abrasion, No Cortez's sign, No contusion, No cranial bruits, No hematoma, No laceration, No occipital foramen tenderness, No palpable skull fracture, No raccoon eyes, No scalp tenderness, No Temporal artery tenderness present and No periorbital ecchymosis Eyes: General: appearance normal, both eyes and all related structures Neck: Neck: Yes normal visual inspection, Yes full ROM, Yes no lymphadenopathy, Yes no meningeal signs, Yes trachea midline, Yes supple and No tender Chest: Other: Negative for any tenderness or ecchymosis Chest palpation & inspection: normal inspection of the chest, normal palpation of entire chest wall and no localized rib tenderness Resp: Effort & Inspection: normal respiratory effort and able to speak in complete sentences Auscultation: clear to auscultation bilaterally Cardio: Jugular venous distension: no JVD Heart sounds: S1 normal heart sound present and S2 normal heart sound present GI: Inspection: Yes normal to inspection and No abdominal wall ecchymosis Palpation (GI): Soft to palpation, not firm, nontender, no guarding and not rigid : General: No CVA tenderness and Yes no CVA tenderness Back/Spine/Pelvis: Back: no CVA tenderness, No CVA tenderness and No back tenderness Skin: General skin exam: no rashes or lesions noted Neuro: General: gait normal, no meningeal signs and CN's II-XI intact bilaterally Cranial nerves: Yes CN's II-XII intact bilaterally Extrem: Other: Lower extremities negative for any swelling, pitting edema, redness. Negative for any calf pain Psych: Appearance: grossly normal, well kempt and not disheveled Course Course Course Narrative: Patient stated during evaluation that he fell, but did not hit head or loss of consciousness. Patient states he tripped in his liver room and fell onto his left shoulder. Patient denies any left shoulder/chest pain, or pain elsewhere in the body. Patient will be started on albuterol DuoNeb and Solu-Medrol. Patient also have a cardiac evaluation due to age and risk factors. Patient also tested for COVID Reevaluation(s) Reevaluation #1: Lactic positive at 4. Awaiting for BMP before giving septic fluid. Patient started on antibiotics Levaquin IV. Time: 20:46 Reevaluation #2: Patient's troponin at 88. BNP 337 ( baselin), but x-ray and physical exam does not indicate CHF exacerbation. Negative for JVD. X-ray negative for cardiomegaly or effusion. Will give 2 L which is total septic fluid. Patient also was sent for chest CT admission is no PE. Patient troponin never been elevated before in the past. Patient baseline is 3 L of oxygen . Patient has no history of CHF. Time: 20:57 Reevaluation #3: Spoke with Dr. Dimas concerns patient elevated troponin. He was sent patient's copy of EKG, labs including trending troponins, trending BNps, and he states patient does not need to be started on heparin drip. He states patient could be admitted for observation and to repeat troponin. Time: 22:26 MDM - SOB/Dyspnea MDM Narrative Medical decision making narrative: COPD exacerbation Lab Data Result diagrams: 08/20/20 19:49 08/20/20 19:49 Labs: Lab Results 08/20/20 08/20/20 08/20/20 Range/Units 19:49 19:49 19:49 WBC 11.2 H (4.8-10.8) X10*3/uL RBC 4.28 L (4.60-5.80) X10*6/uL Hgb 11.7 L (14.0-18.0) g/dl Hct 36.9 L (42-52) % MCV 86.2 (80-98) fL MCH 27.3 (27.0-33.0) pg MCHC 31.7 (31.0-36.0) g/dl RDW 17.7 H (11.0-16.0) % Plt Count 211 (160-400) X10*3/uL MPV 10.2 (9.4-12.4) fL Immature Gran % (Auto) 0.7 H (0.0-0.4) % Neut % (Auto) 85.2 H (45-73) % Lymph % (Auto) 7.4 L (20-40) % [place] % (Auto) 6.4 (2-11) % Eos % (Auto) 0.2 (0-4) % Baso % (Auto) 0.1 (0-2) % Lymph # (Auto) 0.8 L (1.2-4.9) X10*3/uL [place] # (Auto) 0.7 (0.1-1.2) X10*3/uL Eos # (Auto) 0.0 (0.0-0.4) X10*3/uL Baso # (Auto) 0.0 (0.0-0.2) X10*3/uL Abs Immat Gran (auto) 0.08 H (0.00-0.03) X10*3/uL Absolute Neuts (auto) 9.5 H (2.0-8.3) X10*3/uL Absolute Nucleated RBC 0.000 (0.0-0.012) X10*3/uL Nucleated RBC % (auto) 0.0 (0.0-0.2) /100WBC PT 18.1 H (10.8-13.0) SEC INR 1.5 H (0.9-1.1) APTT 36.4 (24.1-38.0) SEC Sodium 139 (135-145) mmol/L Potassium 5.0 (3.3-5.1) mmol/l Chloride 101 (96-108) mmol/L Carbon Dioxide 28 (22-29) mmol/L Anion Gap 15 (12-20) BUN 17 H (9-16) mg/dL Creatinine 0.90 (0.5-1.4) mg/dL Estim Creat Clear Calc 55.5 Estimated GFR > 60 Random Glucose 170 H D (60-115) mg/dL Lactic Acid (0.5-2.0) mmol/L Lactic Acid Fup @ 2Hr (0.5-2.0) mmol/L Calcium 8.5 D (8.4-10.2) mg/dL Total Bilirubin 0.7 (0.0-1.0) mg/dL AST 43 H D (5-37) U/L ALT 26 (0-40) U/L Alkaline Phosphatase 200 H D (39-117) U/L Troponin I High Sens (<3.5-35.0) ng/L B-Natriuretic Peptide (<100) pg/mL Total Protein 6.3 L (6.5-8.0) g/dL Albumin 3.4 L (3.5-5.0) g/dL Coronavirus (PCR) (Negative) Influenza Type A (PCR) (Negative) Influenza Type B (PCR) (Negative) RSV RNA Qual (PCR) (Negative) 08/20/20 08/20/20 08/20/20 Range/Units 19:49 19:49 19:49 WBC (4.8-10.8) X10*3/uL RBC (4.60-5.80) X10*6/uL Hgb (14.0-18.0) g/dl Hct (42-52) % MCV (80-98) fL MCH (27.0-33.0) pg MCHC (31.0-36.0) g/dl RDW (11.0-16.0) % Plt Count (160-400) X10*3/uL MPV (9.4-12.4) fL Immature Gran % (Auto) (0.0-0.4) % Neut % (Auto) (45-73) % Lymph % (Auto) (20-40) % [place] % (Auto) (2-11) % Eos % (Auto) (0-4) % Baso % (Auto) (0-2) % Lymph # (Auto) (1.2-4.9) X10*3/uL [place] # (Auto) (0.1-1.2) X10*3/uL Eos # (Auto) (0.0-0.4) X10*3/uL Baso # (Auto) (0.0-0.2) X10*3/uL Abs Immat Gran (auto) (0.00-0.03) X10*3/uL Absolute Neuts (auto) (2.0-8.3) X10*3/uL Absolute Nucleated RBC (0.0-0.012) X10*3/uL Nucleated RBC % (auto) (0.0-0.2) /100WBC PT (10.8-13.0) SEC INR (0.9-1.1) APTT (24.1-38.0) SEC Sodium (135-145) mmol/L Potassium (3.3-5.1) mmol/l Chloride (96-108) mmol/L Carbon Dioxide (22-29) mmol/L Anion Gap (12-20) BUN (9-16) mg/dL Creatinine (0.5-1.4) mg/dL Estim Creat Clear Calc Estimated GFR Random Glucose (60-115) mg/dL Lactic Acid 4.0 H* (0.5-2.0) mmol/L Lactic Acid Fup @ 2Hr (0.5-2.0) mmol/L Calcium (8.4-10.2) mg/dL Total Bilirubin (0.0-1.0) mg/dL AST (5-37) U/L ALT (0-40) U/L Alkaline Phosphatase (39-117) U/L Troponin I High Sens 88.1 H D (<3.5-35.0) ng/L B-Natriuretic Peptide 367 H (<100) pg/mL Total Protein (6.5-8.0) g/dL Albumin (3.5-5.0) g/dL Coronavirus (PCR) NEGATIVE (Negative) Influenza Type A (PCR) NEGATIVE (Negative) Influenza Type B (PCR) NEGATIVE (Negative) RSV RNA Qual (PCR) NEGATIVE (Negative) 08/20/20 08/20/20 Range/Units 23:02 23:02 WBC (4.8-10.8) X10*3/uL RBC (4.60-5.80) X10*6/uL Hgb (14.0-18.0) g/dl Hct (42-52) % MCV (80-98) fL MCH (27.0-33.0) pg MCHC (31.0-36.0) g/dl RDW (11.0-16.0) % Plt Count (160-400) X10*3/uL MPV (9.4-12.4) fL Immature Gran % (Auto) (0.0-0.4) % Neut % (Auto) (45-73) % Lymph % (Auto) (20-40) % [place] % (Auto) (2-11) % Eos % (Auto) (0-4) % Baso % (Auto) (0-2) % Lymph # (Auto) (1.2-4.9) X10*3/uL [place] # (Auto) (0.1-1.2) X10*3/uL Eos # (Auto) (0.0-0.4) X10*3/uL Baso # (Auto) (0.0-0.2) X10*3/uL Abs Immat Gran (auto) (0.00-0.03) X10*3/uL Absolute Neuts (auto) (2.0-8.3) X10*3/uL Absolute Nucleated RBC (0.0-0.012) X10*3/uL Nucleated RBC % (auto) (0.0-0.2) /100WBC PT (10.8-13.0) SEC INR (0.9-1.1) APTT (24.1-38.0) SEC Sodium (135-145) mmol/L Potassium (3.3-5.1) mmol/l Chloride (96-108) mmol/L Carbon Dioxide (22-29) mmol/L Anion Gap (12-20) BUN (9-16) mg/dL Creatinine (0.5-1.4) mg/dL Estim Creat Clear Calc Estimated GFR Random Glucose (60-115) mg/dL Lactic Acid (0.5-2.0) mmol/L Lactic Acid Fup @ 2Hr 2.6 H* (0.5-2.0) mmol/L Calcium (8.4-10.2) mg/dL Total Bilirubin (0.0-1.0) mg/dL AST (5-37) U/L ALT (0-40) U/L Alkaline Phosphatase (39-117) U/L Troponin I High Sens 92.8 H (<3.5-35.0) ng/L B-Natriuretic Peptide (<100) pg/mL Total Protein (6.5-8.0) g/dL Albumin (3.5-5.0) g/dL Coronavirus (PCR) (Negative) Influenza Type A (PCR) (Negative) Influenza Type B (PCR) (Negative) RSV RNA Qual (PCR) (Negative) ECG Data Interpretation: Atrial fibrillation with PVCs or aberrantly conducted complexes. Pr interval. QRS duration 82. QTC 4-7. Dr. Dimas evaluated EKG and states patient is not having atrial fibrillation. There are P waves in V4 Discharge Plan Discharge Clinical Impression: COPD (chronic obstructive pulmonary disease) Patient Disposition: Admitted As Inpatient
[2020-08-20] MEDS: Albuterol/Iprat 2.5/0.5MG 3 ML AMPUL.NEB INHALE (19:56)
[2020-08-20 19:57] VITALS: BP 110/52; PULSE 103; PULSE 93; RESP 30; TEMP 37.3; O2SAT 86; O2SAT 91
[2020-08-20 20:03] LABS: Basophils Percent Auto 0.1 % (0-2); Eosinophils Percent Auto 0.2 % (0-4); Hematocrit 36.9 % (42-52); Hemoglobin 11.7 g/dl (14.0-18.0); Imm Gran Abs Auto 0.08 X10*3/uL (0.00-0.03); Imm Gran Pct Auto 0.7 % (0.0-0.4); Lymphocytes Absolute Auto 0.8 X10*3/uL (1.2-4.9); Lymphocytes Percent Auto 7.4 % (20-40); Mean Corpuscular HGB Conc 31.7 g/dl (31.0-36.0); Mean Corpuscular Hemoglobin 27.3 pg (27.0-33.0); Mean Corpuscular Volume 86.2 fL (80-98); Mean Platelet Volume 10.2 fL (9.4-12.4); Monocytes Absolute Auto 0.7 X10*3/uL (0.1-1.2); Monocytes Percent Auto 6.4 % (2-11); Neutrophils Absolute Auto 9.5 X10*3/uL (2.0-8.3); Neutrophils Percent Auto 85.2 % (45-73); Platelet Count 211 X10*3/uL (160-400); Red Blood Count 4.28 X10*6/uL (4.60-5.80); Red Cell Distribution Width 17.7 % (11.0-16.0); White Blood Count 11.2 X10*3/uL (4.8-10.8)
[2020-08-20 20:05] LABS: MANUAL DIFF FLAG NO
[2020-08-20 20:09] LABS: INTERNATIONAL NORM RATIO 1.5 (0.9-1.1); Prothrombin Time 18.1 SEC (10.8-13.0)
[2020-08-20 20:12] LABS: Partial Thromboplastin Time 36.4 SEC (24.1-38.0)
[2020-08-20 20:25] LABS: Alanine Aminotransferase 26 U/L (0-40); Albumin Level 3.4 g/dL (3.5-5.0); Alkaline Phosphatase 200 U/L (39-117); Anion Gap 15 (12-20); Aspartate Amino Transferase 43 U/L (5-37); Bilirubin Total 0.7 mg/dL (0.0-1.0); Blood Urea Nitrogen 17 mg/dL (9-16); Calcium 8.5 mg/dL (8.4-10.2); Carbon Dioxide 28 mmol/L (22-29); Chloride 101 mmol/L (96-108); Creatinine Clr Calc Pharmacy 55.5; Estimated Glomerular Filt Rate > 60; Glucose Random 170 mg/dL (60-115); Sodium 139 mmol/L (135-145); Total Protein 6.3 g/dL (6.5-8.0)
[2020-08-20] MEDS: methylPREDNISolone Sod Succ/PF 125 MG/2 ML VIAL IVPUSH (20:27)
[2020-08-20 20:49] LABS: B Type Natriuretic Peptide 367 pg/mL (<100); Troponin-I High Sensitivity 88.1 ng/L (<3.5-35.0)
[2020-08-20 20:53] LABS: Influenza A PCR NEGATIVE (Negative); Influenza B PCR NEGATIVE (Negative); Resp Syncy Virus RNA Qual PCR NEGATIVE (Negative); SARS COV2 PCR INHOUSE NEGATIVE (Negative)
[2020-08-20] MEDS: levoFLOXacin/D5W 500 MG/100 ML PIGGYBACK 100 MG IV (20:57)
--- NOTE | 2020-08-20 20:58 | CT_ITS ---
EXAMINATION: CT ANGIOGRAM OF THE CHEST WITH AND WITHOUT CONTRAST (CT PULMONARY ANGIOGRAM FOR PE) CLINICAL INFORMATION: Reason for Exam Elevated troponin. Shortness of breath. Rule out PE. COMPARISON: CT PE study 06/28/2020 TECHNIQUE: Prior to contrast administration, noncontrast localization images were obtained. Subsequently, multidetector volumetric imaging was performed from the thoracic inlet to below the diaphragms following the administration of 65 mL Omnipaque 350 intravenous contrast. No contrast reaction reported Sagittal, coronal, and MIP oblique sagittal reformatted images were obtained on the CT workstation, uploaded to PACS, and reviewed. This CT examination was performed using dose optimization techniques as appropriate, variously including the following: *Automated exposure control *Adjustment of mA and/or kV according to patient size (this includes techniques or standardized protocols for targeted exams where dose is matched to indication/reason for exam; i.e. extremities or head) *Use of iterative reconstruction technique Total exam dose-length product 252 mGy-cm FINDINGS: QUALITY OF STUDY/CONTRAST BOLUS: Satisfactory. PULMONARY ARTERIES: Again seen are chronic changes of pulmonary emboli with some webs which demonstrates some calcification at the bifurcation of the right middle lobe pulmonary artery as well as in a right lower lobe branch. No acute emboli are seen. Again seen is dilatation of the main pulmonary artery of 3.5 cm suggesting pulmonary hypertension. THORACIC AORTA: No aneurysm or dissection. LUNG: Dependent atelectasis is present. Peripheral blebs are present especially in the left lower lobe consistent with underlying emphysema. At the left lung base, there is a new 2 cm rounded which also probably represents a small area of loculated pleural fluid PLEURA: No pleural effusion or pneumothorax. Again seen is a small area of loculated fluid along the left major fissure. MEDIASTINUM: Normal heart size. No pericardial effusion. No hilar or mediastinal lymphadenopathy. No evidence of septal bowing or right heart strain. CHEST WALL/AXILLA: No axillary or internal mammary lymphadenopathy. OSSEOUS STRUCTURES: No acute or suspicious osseous abnormality. UPPER ABDOMEN: Hepatosplenomegaly is present. Gallstones are seen. 2 small right-sided renal cysts are visualized the largest measuring 1.8 cm. A large left upper pole renal cyst is present. The splenic artery demonstrates fusiform enlargement at a centimeter in size. There is mild reflux of contrast into the hepatic veins, suggesting elevated right heart pressures. CT/CT angio chest PE protocol IMPRESSION: 1. No acute pulmonary emboli 2. 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 Underlying emphysema 4. Two small focal collections of pleural fluid one in the fissure on the left and another at the left lung base. 5. Hepatosplenomegaly 6. Cholelithiasis 7. Bilateral renal cysts VTE: negative
--- NOTE | 2020-08-20 21:04 | PC.NURSE ---
Spoke with daughter and gave her update regarding status and plan of care . Pt resting in bed with eyes closed. IV antibiotic started. Discussed elevated lactic acid and troponin with MD.
[2020-08-20] MEDS: iohexoL 350 MG/ML 100 ML INFUS..BTL IV (21:42)
[2020-08-20] MEDS: 0.9 % Sodium Chloride 1,000 ML 999 ML IVCONT ×2 (21:46→22:55)
[2020-08-20 21:47] VITALS: BP 124/90; PULSE 78; RESP 18; TEMP 36.8; O2SAT 90
--- NOTE | 2020-08-20 21:48 | PC.NURSE ---
Pt's breathing is less labored. He remains on 3liters nc with sats in low 90s. He is receiving iv antibiotic and ivf. He appears much more comfortble and is much more talkative than when he first arrived.
[2020-08-20 21:59] LABS: Reflex Lactate? Lactic Acid Added
[2020-08-20 23:39] LABS: ~Lactic Acid-LAB USE ONLY 2.6 mmol/L (0.5-2.0)
[2020-08-20 23:48] LABS: Troponin-I High Sensitivity 92.8 ng/L (<3.5-35.0)
[2020-08-21] VITALS (7 sets, daily range): BP systolic 108–122; BP diastolic 58–72; PULSE 65–78; RESP 18–20; TEMP 36.2–36.7; O2SAT 90–95; BMI 19.8
--- NOTE | 2020-08-21 00:48 | PM.IMHP ---
History of Present Illness Date of Service: 08/21/20 Chief Complaint: SOB 85 y/o male with an extensive PMHX who presented from home due to SOB. Per history provided by the patient, has been having worsening difficulty breathing in the past few days associated with a mild dry cough. Patient denies any chest pain, nausea, vomiting, diarrhea or fever. On presentation to the ED patient was found to have an O2 sat <90% on room air for what O2 requirements were increased to 4 liters and then titrated down to 2 liters after inhaler therapy was given in the ED. Patient was given one dose of Solumedrol and One dose of Levaquin as well as 2 liters of NS. Lactate initially 4 which improved to 2 after IV hydration. Troponin found to be 88 which later increaed to 92. Dr Dimas [employer] was consulted per ED due to elevated troponin and no AC was recommended at presented. Decision for admission was given for COPD exacerbation. Patient seen and examined at the bedside, laying down in bed in no acute distress. O2 sat now 95% after repositioning. ROS as above otherwise negative. Physical exam unremarkable. PMHX: 1. Metastatic renal cell carcinoma with mets to the lung, lymph nodes, and bones. 2. Hypertension. 3. Diet controlled Diabetes. 4. Macular degeneration. 5. Remote history of alcoholism. 6. History of liver cirrhosis. 7. 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 PSx; 1. TURP. 2. Shockwave lithotripsy. Toxic habits: The patient has a remote history of both alcohol and tobacco use. He quit smoking about 25 to 30 years ago. Review of Systems Constitutional: Constitutional: Reports as per HPI Neurologic: Reports system reviewed and no additional complaints, except as documented and Reports as per HPI [facility] Medical History Cardiac arrhythmia Cirrhosis COPD (chronic obstructive pulmonary disease) Diabetes Emphysema of lung Heart block AV second degree History of bladder cancer HTN (hypertension) Kidney stones Legally blind Macular degeneration Renal carcinoma Respiratory failure Functional capacity: independent ambulation Family History Father No problems noted. Mother No problems noted. Family history: reviewed and not pertinent Surgical History No pertinent past surgical history Social History Alcohol intake: current Alcohol intake frequency: holidays/special occasions only Smoking Status: Former smoker Use of substances other than those prescribed or required for medical reasons: No Advance Directives: No Advance Directives Information Provided: Yes Meds Allergies Allergy/AdvReac Type Severity Reaction Status Date / Time No Known Allergies Allergy Verified 08/15/20 09:30 [No Known Allergies*] Home Medications Medication Instructions Recorded Confirmed Type albuterol 90 mcg INHALATION Q4-5H PRN 08/20/20 08/20/20 History amlodipine 5 mg PO DAILY 08/20/20 08/20/20 History aspirin 81 mg PO DAILY 08/20/20 08/20/20 History famotidine 20 mg PO DAILY 08/20/20 08/20/20 History guaifenesin [Mucinex] 600 mg PO BID 08/20/20 08/20/20 History metoprolol succinate 25 mg PO DAILY 08/20/20 08/20/20 History sodium polystyrene sulfonate [SPS] 60 ml PO BID 08/20/20 08/20/20 History Physical Exam Vital Signs and Narrative: Vital Signs: Last Vital Signs Temp 98.3 F 08/20/20 21:47 Pulse 78 08/20/20 21:47 Resp 18 08/20/20 21:47 BP 124/90 H 08/20/20 21:47 Pulse Ox 90 L 08/20/20 21:47 Body Mass Index 19.5 Const: General: cooperative, comfortable and no acute distress Orientation/consciousness: oriented to person, oriented to place and oriented to time HENMT: Head: Yes normal to inspection Eyes: General: appearance normal, both eyes and all related structures Neck: Yes normal visual inspection Chest: Chest palpation & inspection: normal inspection of the chest Resp: Effort & Inspection: normal respiratory effort Auscultation: clear to auscultation bilaterally Cardio: Jugular venous distension: no JVD Rate: regular rate Rhythm: regular rhythm Heart sounds: S1 normal heart sound present and S2 normal heart sound present GI: Inspection: Yes normal to inspection Percussion: Yes normal to percussion Skin: General skin exam: no rashes or lesions noted Neuro: General: oriented to person, oriented to place and oriented to time Cognition (Neuro): normal cognition Results Labs CBC and Chem 7: 08/20/20 19:49 08/20/20 19:49 Labs: Laboratory Results - last 24 hr 08/20/20 08/20/20 08/20/20 19:49 19:49 19:49 MCV 86.2 MCH 27.3 MCHC 31.7 RDW 17.7 H Plt Count 211 MPV 10.2 Immature Gran % (Auto) 0.7 H Neut % (Auto) 85.2 H Lymph % (Auto) 7.4 L [place] % (Auto) 6.4 Eos % (Auto) 0.2 Baso % (Auto) 0.1 Lymph # (Auto) 0.8 L [place] # (Auto) 0.7 Eos # (Auto) 0.0 Baso # (Auto) 0.0 Abs Immat Gran (auto) 0.08 H Absolute Neuts (auto) 9.5 H Absolute Nucleated RBC 0.000 Nucleated RBC % (auto) 0.0 PT 18.1 H INR 1.5 H APTT 36.4 Anion Gap 15 Estim Creat Clear Calc 55.5 Estimated GFR > 60 Random Glucose 170 H D Lactic Acid Lactic Acid Fup @ 2Hr Calcium 8.5 D Total Bilirubin 0.7 AST 43 H D ALT 26 Alkaline Phosphatase 200 H D Troponin I High Sens B-Natriuretic Peptide Total Protein 6.3 L Albumin 3.4 L Coronavirus (PCR) Influenza Type A (PCR) Influenza Type B (PCR) RSV RNA Qual (PCR) 08/20/20 08/20/20 08/20/20 19:49 19:49 19:49 MCV MCH MCHC RDW Plt Count MPV Immature Gran % (Auto) Neut % (Auto) Lymph % (Auto) [place] % (Auto) Eos % (Auto) Baso % (Auto) Lymph # (Auto) [place] # (Auto) Eos # (Auto) Baso # (Auto) Abs Immat Gran (auto) Absolute Neuts (auto) Absolute Nucleated RBC Nucleated RBC % (auto) PT INR APTT Anion Gap Estim Creat Clear Calc Estimated GFR Random Glucose Lactic Acid 4.0 H* Lactic Acid Fup @ 2Hr Calcium Total Bilirubin AST ALT Alkaline Phosphatase Troponin I High Sens 88.1 H D B-Natriuretic Peptide 367 H Total Protein Albumin Coronavirus (PCR) NEGATIVE Influenza Type A (PCR) NEGATIVE Influenza Type B (PCR) NEGATIVE RSV RNA Qual (PCR) NEGATIVE 08/20/20 08/20/20 23:02 23:02 MCV MCH MCHC RDW Plt Count MPV Immature Gran % (Auto) Neut % (Auto) Lymph % (Auto) [place] % (Auto) Eos % (Auto) Baso % (Auto) Lymph # (Auto) [place] # (Auto) Eos # (Auto) Baso # (Auto) Abs Immat Gran (auto) Absolute Neuts (auto) Absolute Nucleated RBC Nucleated RBC % (auto) PT INR APTT Anion Gap Estim Creat Clear Calc Estimated GFR Random Glucose Lactic Acid Lactic Acid Fup @ 2Hr 2.6 H* Calcium Total Bilirubin AST ALT Alkaline Phosphatase Troponin I High Sens 92.8 H B-Natriuretic Peptide Total Protein Albumin Coronavirus (PCR) Influenza Type A (PCR) Influenza Type B (PCR) RSV RNA Qual (PCR) Imaging Radiologist's Impressions: Impressions Chest X-Ray 08/20/20 19:12 IMPRESSION: Chronic interstitial changes most prominent in both lung bases and mid lung region. It is stable compared to 07/25/2020. There is interval no acute pneumonic process seen at this time. Chest CTA 08/20/20 20:58 IMPRESSION: 1. No acute pulmonary emboli 2. 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 Underlying emphysema 4. Two small focal collections of pleural fluid one in the fissure on the left and another at the left lung base. 5. Hepatosplenomegaly 6. Cholelithiasis 7. Bilateral renal cysts VTE: negative Assessment and Plan (1) COPD exacerbation: Status: Acute Continue with albuterol inhaler therapy as ordered continue with solumedrol IV and taper as tolerated No need for IV antbx as there is no underlying source of infection identified Titrate O2 therapy down as tolerated to home requirements (2) Sepsis: Status: Acute SIRS criteria met Will not continue with IV antbx as there is no evidence of any underlying infection Trend lactate levels (3) Elevated troponin: Status: Acute Troponin remains plateau likely secondary to demand ischemia. No acute EKG changes ACS ruled out (4) HTN (hypertension): Status: Inactive continue with amlodipine home dose continue with metoprolol home dose continue with aspirin home dose (5) GERD (gastroesophageal reflux disease): Status: Acute continue with pepcid home dose
[2020-08-21 01:17] LABS: Reflex Lactate? 2 Y
[2020-08-21 06:01] LABS: MANUAL DIFF FLAG NO
[2020-08-21 06:10] LABS: Hematocrit 32.8 % (42-52); Hemoglobin 10.1 g/dl (14.0-18.0); Imm Gran Abs Auto 0.06 X10*3/uL (0.00-0.03); Imm Gran Pct Auto 0.9 % (0.0-0.4); Lymphocytes Absolute Auto 0.8 X10*3/uL (1.2-4.9); Lymphocytes Percent Auto 11.9 % (20-40); Mean Corpuscular HGB Conc 30.8 g/dl (31.0-36.0); Mean Corpuscular Hemoglobin 26.7 pg (27.0-33.0); Mean Corpuscular Volume 86.8 fL (80-98); Mean Platelet Volume 10.5 fL (9.4-12.4); Monocytes Absolute Auto 0.3 X10*3/uL (0.1-1.2); Neutrophils Absolute Auto 5.7 X10*3/uL (2.0-8.3); Neutrophils Percent Auto 83.2 % (45-73); Platelet Count 158 X10*3/uL (160-400); Red Blood Count 3.78 X10*6/uL (4.60-5.80); Red Cell Distribution Width 17.4 % (11.0-16.0); White Blood Count 6.8 X10*3/uL (4.8-10.8)
[2020-08-21 06:37] LABS: Anion Gap 13 (12-20); Blood Urea Nitrogen 15 mg/dL (9-16); Calcium 7.7 mg/dL (8.4-10.2); Carbon Dioxide 24 mmol/L (22-29); Chloride 106 mmol/L (96-108); Creatinine Clr Calc Pharmacy 66.4; Estimated Glomerular Filt Rate > 60; Glucose Random 185 mg/dL (60-115); Potassium 4.7 mmol/l (3.3-5.1); Sodium 138 mmol/L (135-145)
[2020-08-21] MEDS: Famotidine 20 MG TABLET PO (08:44)
[2020-08-21] MEDS: amLODIPine Besylate 5 MG TABLET PO (08:44)
[2020-08-21] MEDS: Aspirin 81 MG TAB.CHEW PO (08:44)
[2020-08-21] MEDS: Metoprolol Succinate ER 25 MG TAB.ER.24H PO (08:44)
[2020-08-21] MEDS: 0.9 % Sodium Chloride Flush 3 ML SYRINGE IVFLUSH ×2 (08:45→16:02)
[2020-08-21] MEDS: Heparin Sodium,Porcine 5,000 UNIT/ML VIAL 5000 UNIT SUBCUT ×2 (08:45→16:02)
--- NOTE | 2020-08-21 11:08 | MHC.CM.PN ---
CM met with patient at the bedside who referred me to Dtr/HCP Edith [phone]. CM spoke with Edith by phone who reports patient amb with a walker , lives with at an [facility]. Patient does have assistance with ADL's and IADL's from [facility] staff. Patient does have a HCP and a copy is on file. Discussed discharge plan, per Edith patient would like to go home and no other services needed. Patient will need transportation on discharge. CM will continue to follow patient for discharge needs.
--- NOTE | 2020-08-21 18:24 | P.PNIM_ITS ---
Subjective Subjective Date of Service: 08/21/20 Interval History: seen and examined this afternoon reports feeling intermittently better reports no history of being on blood thinners ROS General - no fevers or chills Cardiovascular - no chest pain Respiratory - REINA Abdominal- no abdominal pain, nausea, vomiting, diarrhea Physical Exam Vital Signs: Vital Signs: Last Vital Signs Temp 97.5 F 08/21/20 16:58 Pulse 66 08/21/20 16:00 Resp 18 08/21/20 16:00 BP 109/58 L 08/21/20 16:00 Pulse Ox 95 08/21/20 16:00 Body Mass Index 19.8 Const: Other: General - no acute distress, appears comfortable Cardiovascular - regular rate and rhythm, S1-S2 Lungs - trace wheezing Abdomen - soft, nontender, no rebound or guarding Extremities - no edema bilaterally Neuro - awake and alert, no focal deficits Objective Data Current Medications Generic Name Dose Route Start Last Admin Trade Name Freq PRN Reason Stop Dose Admin Albuterol Sulfate 1.25 mg 08/21/20 00:48 Albuterol Sulfate (0.042%) 1.25 Mg/3 Ml Vial.Neb INHALE RQ4H PRN Shortness of Breath Amlodipine Besylate 5 mg 08/21/20 09:00 08/21/20 08:44 Amlodipine Besylate 5 Mg Tablet PO 5 mg DAILY EUFEMIA Administration Protocol Aspirin 81 mg 08/21/20 09:00 08/21/20 08:44 Aspirin 81 Mg Tab.Chew PO 81 mg DAILY EUFEMIA Administration Famotidine 20 mg 08/21/20 09:00 08/21/20 08:44 Famotidine 20 Mg Tablet PO 20 mg DAILY EUFEMIA Administration Heparin Sodium (Porcine) 5,000 unit 08/21/20 00:48 08/21/20 16:02 Heparin Sodium,Porcine 5,000 Unit/Ml Vial SUBCUT 5,000 unit Q8H EUFEMIA Administration Methylprednisolone Sodium Succinate 40 mg 08/21/20 06:00 08/21/20 05:47 Methylprednisolone Sod Succ/Pf 40 Mg/Ml Vial IVPUSH 40 mg Q24H EUFEMIA Administration Metoprolol Succinate 25 mg 08/21/20 09:00 08/21/20 08:44 Metoprolol Succinate Er 25 Mg Tab.Er.24h PO 25 mg DAILY EUFEMIA Administration Protocol Sodium Chloride 3 ml 08/21/20 08:00 08/21/20 16:02 0.9 % Sodium Chloride Flush 3 Ml Syringe IVFLUSH 3 ml QSHIFT EUFEMIA Administration Labs CBC & Chem 7: 08/21/20 05:30 08/22/20 08:50 Assessment and Plan (1) COPD (chronic obstructive pulmonary disease): Status: Acute Assessment and Plan: This is a 85 yo M with a history of renal cell Ca who presents with complaints of sob and is admitted for COPD exacerbation. 1. COPD excerbation, chronic resp failure with hypoxia steroids, updrafts continue o2 until at baseline 2L CT reviewed -- no acute PE but CT findings of chronic embolic dx; discussed this with the patients special population paraprofessional, Dr. Lopez - and she advises that if patients symptoms improve with treatment of copd/chf -- would advise again OAC given age and visual disability. discussed this with the patient who is in agreement. will see how he does tomorrow and if improved, hold off on OAC 2. HTN norvasc 3. Elevated BNP po lasix continue other home meds dispo: back to assisted living when medically cleared
[2020-08-22] MEDS: 0.9 % Sodium Chloride Flush 3 ML SYRINGE IVFLUSH ×2 (00:04→09:16)
[2020-08-22] MEDS: Heparin Sodium,Porcine 5,000 UNIT/ML VIAL 5000 UNIT SUBCUT ×2 (00:04→09:16)
[2020-08-22 06:06] VITALS: O2SAT 92
[2020-08-22 07:55] VITALS: BP 122/66; PULSE 81; RESP 18; TEMP 36.1; O2SAT 96
--- NOTE | 2020-08-22 09:11 | P.CDIC_ITS ---
CDI Concurrent Query Service Date: 08/22/20 Documentation Clarification: Please clarify if you are treating a proba ble/suspected/likely or confirmed: Sepsis (treat) Sepsis (rule out) SIRS Please specify if known SIRS Provider Response: Other Other Diagnosis: SIRS PLEASE DO NOT DELETE/MODIFY EXISTING CONTENT Additional information is needed in order to code to the highest accuracy and appropriate Severity of Illness (SOI). Please clarify the information noted below in your progress notes and discharge summary. Risk Factors/Clinical Indicators/Treatments H&P: Assessment/plan: Sepsis Acute SIRS criteria no IV antibiotics, no underlying source of infection identified, titrate O2 down WBC 11.2 LA 4.0 HR 78 RR 18 Temp 97.2 COPD exacerbation, Albuterol CDS: Chelsey Almanzar CCS, CDIS Contact Number: [phone] Please Review the information above and exercise your independent professional judgment in responding to the query. If you concur, pleas document in the PROGRESS NOTES and DISCHARGE SUMMARY. If you do not agree with the query, please document in the query above. THIS QUERY IS PART OF THE PERMANENT MEDICAL RECORD
[2020-08-22] MEDS: Aspirin 81 MG TAB.CHEW PO (09:15)
[2020-08-22] MEDS: amLODIPine Besylate 5 MG TABLET PO (09:15)
[2020-08-22] MEDS: Famotidine 20 MG TABLET PO (09:15)
[2020-08-22] MEDS: Metoprolol Succinate ER 25 MG TAB.ER.24H PO (09:15)
[2020-08-22 09:54] LABS: Anion Gap 16 (12-20); Blood Urea Nitrogen 19 mg/dL (9-16); Calcium 8.5 mg/dL (8.4-10.2); Carbon Dioxide 25 mmol/L (22-29); Chloride 104 mmol/L (96-108); Creatinine Clr Calc Pharmacy 67.3; Estimated Glomerular Filt Rate > 60; Glucose Random 126 mg/dL (60-115); Sodium 140 mmol/L (135-145)
[2020-08-22 09:59] LABS: B Type Natriuretic Peptide 455 pg/mL (<100)
--- NOTE | 2020-08-22 10:25 | MHC.CM.PN ---
Pt to discharge back to [facility], referral for transportation via [facility] complete.
--- NOTE | 2020-08-22 11:40 | PM.DS ---
DS: Providers Provider Date of admission: 08/21/20 00:48 Primary care physician: Unknown Physician DS: Diagnosis Discharge Diagnosis (1) Chronic respiratory failure with hypoxia: Status: Acute (2) SIRS (systemic inflammatory response syndrome): Status: Acute (3) COPD exacerbation: Status: Acute (4) Kidney malignancy: Status: Acute DS: Medications Discharge Medications Home Medications: Home Medications Medication Instructions Recorded Confirmed albuterol 90 mcg INHALATION Q4-5H PRN 08/20/20 08/20/20 amlodipine 5 mg PO DAILY 08/20/20 08/20/20 aspirin 81 mg PO DAILY 08/20/20 08/20/20 famotidine 20 mg PO DAILY 08/20/20 08/20/20 guaifenesin [Mucinex] 600 mg PO BID 08/20/20 08/20/20 metoprolol succinate 25 mg PO DAILY 08/20/20 08/20/20 sodium polystyrene sulfonate 60 ml PO BID 08/20/20 08/20/20 Previous Rx's Medication Instructions Recorded prednisone 40 mg PO DAILY #8 tab 08/22/20 DS: Summary Hospital Course Hospital Course: This is a 85-year-old gentleman with known history of COPD and chronic respiratory failure with hypoxia who was admitted for COPD exacerbation. He was started on IV steroids and scheduled bronchodilators. Over the course of 2 nights in the hospital, his symptoms improved and his oxygen requirements returned to his baseline of 2 L. he will be transitioned to oral prednisone for 4 more days and can continue his inhalers as as on he was previously doing. Of note, as part of his workup in the ED he underwent a CTA which was negative for any acute pulmonary embolisms however there was evidence of sequelae of chronic embolic disease. Due to his advancing age and legal blindness, a discussion was held with patient about starting anticoagulation. Risks and benefits were discussed and ultimately he decided upon foregoing anticoagulation. Patient's application development project manager was also in agreement of this decision. Time Spent with Patient Time attestation: Total time spent providing and/or coordinating discharge services: Physical Exam Vital Signs: Vital Signs: Last Vital Signs Temp 96.9 F 08/22/20 07:55 Pulse 81 08/22/20 07:55 Resp 18 08/22/20 07:55 BP 122/66 08/22/20 07:55 Pulse Ox 96 08/22/20 07:55 Body Mass Index 19.8 Const: Other: General - no acute distress, appears comfortable Cardiovascular - regular rate and rhythm, S1-S2 Lungs - normal respiratory effort, clear to auscultation bilaterally, no wheezing Abdomen - soft, non-tender, no rebound or guarding Extremities - no edema bilaterally Neuro - awake and alert, no focal deficits DS: Data Data Completed and Pending Labs on day of discharge: Laboratory Last Values WBC 6.8 X10*3/uL (4.8-10.8) 08/21/20 05:30 RBC 3.78 X10*6/uL (4.60-5.80) L 08/21/20 05:30 Hgb 10.1 g/dl (14.0-18.0) L 08/21/20 05:30 Hct 32.8 % (42-52) L 08/21/20 05:30 MCV 86.8 fL (80-98) 08/21/20 05:30 MCH 26.7 pg (27.0-33.0) L 08/21/20 05:30 MCHC 30.8 g/dl (31.0-36.0) L 08/21/20 05:30 RDW 17.4 % (11.0-16.0) H 08/21/20 05:30 Plt Count 158 X10*3/uL (160-400) L D 08/21/20 05:30 MPV 10.5 fL (9.4-12.4) 08/21/20 05:30 Immature Gran % (Auto) 0.9 % (0.0-0.4) H 08/21/20 05:30 Neut % (Auto) 83.2 % (45-73) H 08/21/20 05:30 Lymph % (Auto) 11.9 % (20-40) L 08/21/20 05:30 [place] % (Auto) 4.0 % (2-11) 08/21/20 05:30 Eos % (Auto) 0.0 % (0-4) 08/21/20 05:30 Baso % (Auto) 0.0 % (0-2) 08/21/20 05:30 Lymph # (Auto) 0.8 X10*3/uL (1.2-4.9) L 08/21/20 05:30 [place] # (Auto) 0.3 X10*3/uL (0.1-1.2) 08/21/20 05:30 Eos # (Auto) 0.0 X10*3/uL (0.0-0.4) 08/21/20 05:30 Baso # (Auto) 0.0 X10*3/uL (0.0-0.2) 08/21/20 05:30 Abs Immat Gran (auto) 0.06 X10*3/uL (0.00-0.03) H 08/21/20 05:30 Absolute Neuts (auto) 5.7 X10*3/uL (2.0-8.3) 08/21/20 05:30 Absolute Nucleated RBC 0.000 X10*3/uL (0.0-0.012) 08/21/20 05:30 Nucleated RBC % (auto) 0.0 /100WBC (0.0-0.2) 08/21/20 05:30 PT 18.1 SEC (10.8-13.0) H 08/20/20 19:49 INR 1.5 (0.9-1.1) H 08/20/20 19:49 APTT 36.4 SEC (24.1-38.0) 08/20/20 19:49 Sodium 140 mmol/L (135-145) 08/22/20 08:50 Potassium 5.0 mmol/l (3.3-5.1) 08/22/20 08:50 Chloride 104 mmol/L (96-108) 08/22/20 08:50 Carbon Dioxide 25 mmol/L (22-29) 08/22/20 08:50 Anion Gap 16 (12-20) 08/22/20 08:50 BUN 19 mg/dL (9-16) H 08/22/20 08:50 Creatinine 0.75 mg/dL (0.5-1.4) 08/22/20 08:50 Estim Creat Clear Calc 67.3 08/22/20 08:50 Estimated GFR > 60 08/22/20 08:50 Random Glucose 126 mg/dL (60-115) H 08/22/20 08:50 Lactic Acid 4.0 mmol/L (0.5-2.0) H* 08/20/20 19:49 Lactic Acid Fup @ 2Hr 2.6 mmol/L (0.5-2.0) H* 08/20/20 23:02 Lactic Acid Fup @ 4Hr 2.0 mmol/L (0.5-2.0) 08/21/20 01:44 Calcium 8.5 mg/dL (8.4-10.2) D 08/22/20 08:50 Total Bilirubin 0.7 mg/dL (0.0-1.0) 08/20/20 19:49 AST 43 U/L (5-37) H D 08/20/20 19:49 ALT 26 U/L (0-40) 08/20/20 19:49 Alkaline Phosphatase 200 U/L (39-117) H D 08/20/20 19:49 Troponin I High Sens 92.8 ng/L (<3.5-35.0) H 08/20/20 23:02 B-Natriuretic Peptide 455 pg/mL (<100) H 08/22/20 08:50 Total Protein 6.3 g/dL (6.5-8.0) L 08/20/20 19:49 Albumin 3.4 g/dL (3.5-5.0) L 08/20/20 19:49 Coronavirus (PCR) NEGATIVE (Negative) 08/20/20 19:49 Influenza Type A (PCR) NEGATIVE (Negative) 08/20/20 19:49 Influenza Type B (PCR) NEGATIVE (Negative) 08/20/20 19:49 RSV RNA Qual (PCR) NEGATIVE (Negative) 08/20/20 19:49 Preliminary micro results at discharge 08/20/20 20:02 Blood Culture - Preliminary Blood - Venous No growth after 24 hours. 08/20/20 20:02 Blood Culture - Preliminary Blood - Venous No growth after 24 hours. Discharge Plan Discharge Patient Disposition: Home Health Service Referrals: Physician,Unknown [Primary Care Provider] - Discharge Medications: New prednisone 20 mg tablet 40 mg PO DAILY Qty: 8 RF: 0 Continued amlodipine 5 mg Tablet 5 mg PO DAILY RF: 0 sodium polystyrene sulfonate 15 gram/60 mL Suspension 60 ml PO BID RF: 0 famotidine 20 mg Tablet 20 mg PO DAILY RF: 0 aspirin 81 mg Tablet 81 mg PO DAILY RF: 0 metoprolol succinate 25 mg Tablet Extended Release 24 Hr 25 mg PO DAILY RF: 0 albuterol 90 mcg/actuation Aerosol 90 mcg INHALATION Q4-5H PRN (Reason: Shortness Of Breath) RF: 0 guaifenesin [Mucinex] 600 mg Tablet Extended Release 12hr 600 mg PO BID RF: 0 Discharge Orders: Discharge Order (Routine); Ordered 08/22/20 Ordered By: Mohamud Mei Diet: advance to usual diet Activity on Discharge: As tolerated Visit Report Forms: Patient Portal Discharge page Care Plan Goals: To stay healthy and out of the hospital. Health Concerns: COPD - finish 4 more days of prednisone, continue inhalers Plan of Treatment: COPD - finish 4 more days of prednisone, continue inhalers
--- NOTE | 2020-08-22 11:44 | MHC.INPTTRAN ---
will be cont with PO prednisone. Follow up with PCP. VSS. cont with 02 as needed. Is renetta activity well. Renetta diet.
== END 2020-08-22 15:02 | disposition home health service (06) | DRG 191 ==
LOC: HO.ED 19:07 → HO.IMC 08-21 01:04 → HO.S3 08-21 17:54
PROVIDERS: Physician Assistant; Admitting Provider Internal Medicine; Emergency Provider Student in an Organized Health Care Education/Training Program; Visit Provider Family Medicine
DX: J44.1 Chronic obstructive pulmonary disease with (acute) exacerbation (principal); J96.11 Chronic respiratory failure with hypoxia; R65.10 Systemic inflammatory response syndrome (SIRS) of non-infectious origin without acute organ dysfunction; H54.8 Legal blindness, as defined in USA; Z99.81 Dependence on supplemental oxygen; K21.9 Gastro-esophageal reflux disease without esophagitis; I10 Essential (primary) hypertension; F10.21 Alcohol dependence, in remission; Z20.828 Contact with and (suspected) exposure to other viral communicable diseases; Z87.891 Personal history of nicotine dependence; Z79.82 Long term (current) use of aspirin; Z79.899 Other long term (current) drug therapy
CPT/HCPCS: 0241U; 36415; 71045; 71275; 80048; 80053; 83605; 83880; 84484; 85025; 85610; 85730; 87040; 93005; 94640; 96365; 96375; 99285; J1956; J2920; J2930; Q9967

== ENCOUNTER 2020-08-25 20:03 | Emergency (ER) | payer MEDICARE, OTHER, SELFPAY ==
[2020-08-25 20:18] VITALS: BP 111/60; PULSE 81; RESP 19; TEMP 36.6; O2SAT 96
[2020-08-25 20:20] VITALS: BP 111/60; PULSE 88; RESP 16; TEMP 36.6; O2SAT 96; BMI 18.3
[2020-08-25 20:24] LABS: Glucose, Whole Blood 285 mg/dL (60-115)
--- NOTE | 2020-08-25 21:12 | CT_ITS ---
EXAMINATION: CT HEAD WITHOUT CONTRAST CLINICAL INFORMATION: Weakness COMPARISON: CT head 12/21/2018 TECHNIQUE: Contiguous axial imaging was performed from the skull base to vertex without intravenous administration of contrast. Coronal and sagittal reformatted images are performed at the CT scanner This CT examination was performed using dose optimization techniques as appropriate, variously including the following: *Automated exposure control *Adjustment of mA and/or kV according to patient size (this includes techniques or standardized protocols for targeted exams where dose is matched to indication/reason for exam; i.e. extremities or head) *Use of iterative reconstruction technique DLP: 1227 mGy-cm FINDINGS: There is no evidence of acute intracranial hemorrhage or territorial infarction. No abnormal mass effect or midline shift is seen. Kendall to white matter differentiation is well preserved. No extra-axial fluid collections are identified. There is age-appropriate atrophy with prominence of the ventricles and the sulci and hypodensity of the periventricular white matter due to chronic small vessel ischemic disease. There are vascular calcifications of the internal carotid arteries bilaterally. The osseous structures and soft tissues are normal. The mastoid air cells and visualized portions of the paranasal sinuses are well aerated. CT/CT head/brain wo con IMPRESSION: No acute intracranial pathology.
--- NOTE | 2020-08-25 21:12 | ECG_ITS ---
Test Reason : WEAKNESS Blood Pressure : / mmHG Vent. Rate : 081 BPM Atrial Rate : 081 BPM P-R Int : 000 ms QRS Dur : 084 ms QT Int : 380 ms P-R-T Axes : 081 -01 -23 degrees QTc Int : 441 ms Multifocal atrial rhytm with blocked PAC Low voltage QRS Nonspecific ST abnormality Abnormal ECG When compared with ECG of 20-AUG-2020 19:31, No significant changes seen Referred By: Bam Max Electronically Signed By:CHADD APONTE MD
--- NOTE | 2020-08-25 21:13 | XR_ITS ---
EXAMINATION: XR CHEST CLINICAL INFORMATION: Weakness. Pneumonia. COMPARISON: CT chest 08/20/2020. TECHNIQUE: Frontal portable view of the chest was obtained. 9:46 PM FINDINGS: Asymmetric elevation of left diaphragm compared to the right. There is no acute change. No focal consolidation. No pulmonary vascular congestion. Heart size is normal. Cardiac and mediastinal contours are unchanged. Thoracic aorta is tortuous with calcifications of the wall. There is no aneurysm. XR/XR chest 1V IMPRESSION: No acute abnormality of chest.
--- NOTE | 2020-08-25 21:24 | ED.WEAKNESS ---
HPI - Weakness General Chief complaint: Weakness <RAMA Carpio Last Filed: 08/26/20 02:41> Stated complaint: general weakness copd <RAMA Carpio Last Filed: 08/26/20 02:41> Time Seen by Provider: 08/25/20 20:38 <RAMA Carpio Last Filed: 08/26/20 02:41> Source: patient <RAMA Carpio Last Filed: 08/26/20 02:41> Mode of arrival: EMS <RAMA Carpio Last Filed: 08/26/20 02:41> Limitations: no limitations <RAMA Carpio Last Filed: 08/26/20 02:41> History of Present Illness HPI Narrative: Patient presents to ED for generalized weakness in his legs. Patient states he has not been able to get up and walk for the past 2 days. Patient denies any slurred speech, headache, dizziness, chest pain, coughing up blood, or shortness of breath. <RAMA Carpio Last Filed: 08/26/20 02:41> Related Data Home medications: Home Medications Medication Instructions Recorded Confirmed albuterol 90 mcg INHALATION Q4-5H PRN 08/20/20 08/20/20 amlodipine 5 mg PO DAILY 08/20/20 08/20/20 aspirin 81 mg PO DAILY 08/20/20 08/20/20 famotidine 20 mg PO DAILY 08/20/20 08/20/20 guaifenesin [Mucinex] 600 mg PO BID 08/20/20 08/20/20 metoprolol succinate 25 mg PO DAILY 08/20/20 08/20/20 sodium polystyrene sulfonate 60 ml PO BID 08/20/20 08/20/20 Previous Rx's Medication Instructions Recorded prednisone 40 mg PO DAILY #8 tab 08/22/20 <RAMA Carpio Last Filed: 08/26/20 02:41> Allergies/Adverse reactions: Allergies Allergy/AdvReac Type Severity Reaction Status Date / Time No Known Allergies Allergy Verified 08/25/20 20:24 [No Known Allergies*] <RAMA Carpio Last Filed: 08/26/20 02:41> Review of Systems Review of Systems: Yes all other systems are reviewed and are negative <RAAM Carpio Last Filed: 08/26/20 02:41> Constitutional: Constitutional: Reports as per HPI and Reports no additional constitutional complaints <RAMA Carpio Last Filed: 08/26/20 02:41> Eyes: Eyes: Reports as per HPI and Reports no additional eye complaints <RAMA Carpio Last Filed: 08/26/20 02:41> ENT: Reports system reviewed and no additional complaints, except as documented and Reports as per HPI <RAMA Carpio Last Filed: 08/26/20 02:41> Cardiovascular: Cardiovascular: Reports as per HPI and Reports no additional cardiovascular complaints <RAMA Carpio Last Filed: 08/26/20 02:41> Respiratory: Respiratory: Reports as per HPI and Reports no additional respiratory complaints <RAMA Carpio Last Filed: 08/26/20 02:41> Gastrointestinal: Gastrointestinal: Reports as per HPI and Reports no additional gastrointestinal complaints <RAMA Carpio Last Filed: 08/26/20 02:41> Genitourinary: Genitourinary: Reports no additional male genitourinary complaints and Reports as per HPI <RAMA Carpio Last Filed: 08/26/20 02:41> Musculoskeletal: Musculoskeletal: Reports no additional musculoskeletal complaints and Reports as per HPI <RAMA Carpio Last Filed: 08/26/20 02:41> Integumentary/Breasts: Skin/Breast: Reports system reviewed and no additional complaints, except as docu and Reports as per HPI <RAMA Carpio Last Filed: 08/26/20 02:41> Neurologic: Reports system reviewed and no additional complaints, except as documented and Reports as per HPI <RAMA Carpio Last Filed: 08/26/20 02:41> Comments: Lower extremity weakness <RAMA Carpio Last Filed: 08/26/20 02:41> Psychiatric: Psychiatric: Reports no additional psychiatric complaints and Reports as per HPI <RAMA Carpio Last Filed: 08/26/20 02:41> PMFSH Past Medical History Medical History: Medical History Cardiac arrhythmia Cirrhosis COPD (chronic obstructive pulmonary disease) Diabetes Emphysema of lung Heart block AV second degree History of bladder cancer HTN (hypertension) Kidney stones Legally blind Macular degeneration Renal carcinoma Respiratory failure <RAMA Carpio - Last Filed: 08/26/20 02:41> Surgical History: Surgical History No pertinent past surgical history <RAMA Carpio - Last Filed: 08/26/20 02:41> Family History Family History: Family History Father No problems noted. Mother No problems noted. <RAMA Carpio - Last Filed: 08/26/20 02:41> Social History Social History: Social History Household Members: Spouse Housing: Assisted Living Facility Alcohol intake: former Smoking Status: Former smoker Use of substances other than those prescribed or required for medical reasons: No Advance Directives: No Advance Directives Information Provided: No service: Yes Current occupational status: retired <RAMA Carpio - Last Filed: 08/26/20 02:41> Physical Exam Vital Signs: Vital Signs: Last Vital Signs Temp 97.8 F 08/25/20 20:20 Pulse 63 08/26/20 03:40 Resp 18 08/26/20 03:40 BP 133/69 08/26/20 03:40 Pulse Ox 95 08/26/20 03:40 Body Mass Index 18.3 <RAMA Carpio - Last Filed: 08/26/20 02:41> Vital Signs: Last Vital Signs Temp 97.8 F 08/25/20 20:20 Pulse 63 08/26/20 03:40 Resp 18 08/26/20 03:40 BP 133/69 08/26/20 03:40 Pulse Ox 95 08/26/20 03:40 Body Mass Index 18.3 <Todd Valadez MD - Last Filed: 08/26/20 04:46> Const: General: cooperative, healthy appearing, comfortable, no acute distress, well developed, alert and awake <RAMA Carpio - Last Filed: 08/26/20 02:41> HENMT: Head: Yes normal to inspection and Yes No palpable skull fracture present <Bam Mansoor [facility] Last Filed: 08/26/20 02:41> Eyes: General: appearance normal, both eyes and all related structures <Bam Mansoor RAMA Last Filed: 08/26/20 02:41> Neck: Neck: Yes normal visual inspection, Yes full ROM, Yes no lymphadenopathy, Yes no meningeal signs, Yes trachea midline, Yes supple and No tender <Bam Mansoor [place] Last Filed: 08/26/20 02:41> Chest: Chest palpation & inspection: normal inspection of the chest and normal palpation of entire chest wall <Bam Mansoor [place] Last Filed: 08/26/20 02:41> Resp: Effort & Inspection: normal respiratory effort and able to speak in complete sentences <Bam Mansoor [place] Filed: 08/26/20 02:41> Cardio: Jugular venous distension: no JVD <Bam Mansoor [place] Last Filed: 08/26/20 02:41> Heart sounds: S1 normal heart sound present and S2 normal heart sound present <Bam Mansoor [place] Last Filed: 08/26/20 02:41> GI: Inspection: Yes normal to inspection <Bam Mansoor [place] Last Filed: 08/26/20 02:41> Palpation (GI): Soft to palpation, not firm, nontender, no guarding and not rigid <Bam Mansoor [place] Last Filed: 08/26/20 02:41> : General: No CVA tenderness and Yes no CVA tenderness <Bam Mansoor [place] Last Filed: 08/26/20 02:41> Back/Spine/Pelvis: Back: no CVA tenderness, No CVA tenderness and No back tenderness <Bam Mansoor [place] Last Filed: 08/26/20 02:41> Skin: Other: Bruising on arms. <Bam Mansoor, [place] Last Filed: 08/26/20 02:41> Neuro: Other: Negative for any focal deficit. Negative for facial droop. Negative pronator drift. Negative for slurred speech. Motor strength of all extremities is 4+. Rapid hand movement and [id number] test is intact. <Bam Mansoor, PA Last Filed: 08/26/20 02:41> General: no meningeal signs <RAMA Carpio - Last Filed: 08/26/20 02:41> Extrem: Other: Lower extremity bilaterally positive for swelling and pitting edema. Negative for any redness to indicate cellulitis <RAMA Carpio - Last Filed: 08/26/20 02:41> Psych: Appearance: grossly normal and well kempt <RAMA Carpio - Last Filed: 08/26/20 02:41> Course Course Course Narrative: History negative for any focal deficits. Patient will be sent for head CT, have basic labs including lactic blood cultures, EKG, BNP, chest x-ray and urinalysis. Will be looking for signs of infection and electrolyte deficiencies. <RAMA Carpio - Last Filed: 08/26/20 02:41> Patient with acute weakness with history of kidney cancer with Mets to lung with elevated lactic acid level similar to 4 days ago when he was admitted and workup was negative patient is not drinking enough fluids this time also patient's workup is negative no source of infection patient had gallstones ultrasound showed cholelithiasis without cholecystitis repeat lactic acid level has improved after IV hydration to 1.9. Patient has type B lactic acidosis. After IV fluids patient feeling much better able to ambulate in the ER with help discharge patient back to assisted living <Todd Valadez MD - Last Filed: 08/26/20 04:46> Reevaluation(s) Reevaluation #1: Patient's lactic acid came back 3.1. Presently no source of infection. Waiting for UA. Chest x-ray negative for pneumonia. Will give him septic fluids. Spoke with hospitalist Dr. Coello she was informed of patient's history, physical exam, and diagnostic. She states patient does not need to be admitted for weakness of the legs. Head CT scan is negative. Also lactic acid is positive but does no source of infection. Patient denies any coughing or shortness of breath and chest x-ray negative for pneumonia. Urinalysis was negative for UTI. She shift if there was a infection and patient could be admitted but presently does none. Will give fluids and repeat lactic acid. Patient also be sent for abdominal CT scan due to slight ecchymosis on lower abdomen to rule out any unknown bleed from trauma. <RAMA Carpio - Last Filed: 08/26/20 02:41> Time: 21:40 <RAMA Carpio - Last Filed: 08/26/20 02:41> Reevaluation #2: Repeat lactic acid is 2.6. Abdominal CT scan does not show any acute infectious etiology. Abdominal CT scan does shows gallstones which is chronic with some pericholecystic fluid, but negative for any gallbladder wall thickening. Patient does not have any abdominal wall tenderness. Not suspecting cholecysitis. Patient only complained his weakness in his lower extremities. Patient denies any abdominal pain. Once again patient denies any coughing, fever, chills, chest pain, slurred speech, headache, or dizziness. Patient liver enzyme a baseline. Will signs out to [facility]. to follow repeat lactic acid and case management. Patient is not in SIRS criteria. Patient vital signs are stable. Patient does not have elevated white blood cell count. Will order repeat troponin. <RAMA Carpio - Last Filed: 08/26/20 02:41> Time: 02:17 <RAMA Carpio - Last Filed: 08/26/20 02:41> Reevaluation #3: Discussed case with Dr. Sarah who states patient should go for ultrasound abdomen to rule out cholecystitis and in the meantime give patient Zosyn due to lactic acid being 2.6. Once again presently patient denies any abdominal pain. Dr. Valadez follow-up with ultrasound of abdomen. Patient also have COVID swab sent. <RAMA Carpio - Last Filed: 08/26/20 02:41> Time: 02:35 <RAMA Carpio - Last Filed: 08/26/20 02:41> MDM - Weakness MDM Narrative Medical decision making narrative: Weakness. Positive lactic acidosis <RAMA Carpio Last Filed: 08/26/20 02:41> Lab Data Result diagrams: : 08/25/20 21:41 08/25/20 21:41 <RAMA Carpio - Last Filed: 08/26/20 02:41> Labs: Lab Results 08/25/20 08/25/20 08/25/20 Range/Units 20:21 21:40 21:41 WBC 8.3 (4.8-10.8) X10*3/uL RBC 3.51 L (4.60-5.80) X10*6/uL Hgb 9.5 L (14.0-18.0) g/dl Hct 30.3 L (42-52) % MCV 86.3 (80-98) fL MCH 27.1 (27.0-33.0) pg MCHC 31.4 (31.0-36.0) g/dl RDW 17.5 H (11.0-16.0) % Plt Count 140 L (160-400) X10*3/uL MPV 10.5 (9.4-12.4) fL Immature Gran % (Auto) 0.8 H (0.0-0.4) % Neut % (Auto) 83.5 H (45-73) % Lymph % (Auto) 10.5 L (20-40) % Hendricks % (Auto) 5.2 (2-11) % Eos % (Auto) 0.0 (0-4) % Baso % (Auto) 0.0 (0-2) % Lymph # (Auto) 0.9 L (1.2-4.9) X10*3/uL Hendricks # (Auto) 0.4 (0.1-1.2) X10*3/uL Eos # (Auto) 0.0 (0.0-0.4) X10*3/uL Baso # (Auto) 0.0 (0.0-0.2) X10*3/uL Abs Immat Gran (auto) 0.07 H (0.00-0.03) X10*3/uL Absolute Neuts (auto) 6.9 (2.0-8.3) X10*3/uL Absolute Nucleated RBC 0.000 (0.0-0.012) X10*3/uL Nucleated RBC % (auto) 0.0 (0.0-0.2) /100WBC PT (10.8-13.0) SEC INR (0.9-1.1) APTT (24.1-38.0) SEC Sodium (135-145) mmol/L Potassium (3.3-5.1) mmol/l Chloride (96-108) mmol/L Carbon Dioxide (22-29) mmol/L Anion Gap (12-20) BUN (9-16) mg/dL Creatinine (0.5-1.4) mg/dL Estim Creat Clear Calc Estimated GFR POC Glucose 285 H (60-115) mg/dL Random Glucose (60-115) mg/dL Lactic Acid 3.2 H* (0.5-2.0) mmol/L Lactic Acid Fup @ 2Hr (0.5-2.0) mmol/L Lactic Acid Fup @ 4Hr (0.5-2.0) mmol/L Calcium (8.4-10.2) mg/dL Magnesium (1.6-2.6) mg/dL Total Bilirubin (0.0-1.0) mg/dL Direct Bilirubin (0.0-0.5) mg/dL AST (5-37) U/L ALT (0-40) U/L Alkaline Phosphatase (39-117) U/L Troponin I High Sens (<3.5-35.0) ng/L B-Natriuretic Peptide (<100) pg/mL Total Protein (6.5-8.0) g/dL Albumin (3.5-5.0) g/dL Lipase (8-78) U/L Urine Color Urine Appearance Urine pH (5.0-8.0) Ur Specific Tripp (1.005-1.025) Urine Protein (NEG-TRACE) MG/DL Urine Glucose (UA) (NEG) MG/DL Urine Ketones (NEG) MG/DL Urine Blood (NEG) Urine Nitrite (NEG) Ur Leukocyte Esterase (NEG) Urine RBC (0) /HPF Urine WBC (0-4) /HPF Ur Squamous Epith Cells /LPF Urine Bacteria /LPF Urine Mucus /LPF Coronavirus (PCR) (Negative) Influenza Type A (PCR) (Negative) Influenza Type B (PCR) (Negative) RSV RNA Qual (PCR) (Negative) 08/25/20 08/25/20 08/25/20 Range/Units 21:41 21:41 21:41 WBC (4.8-10.8) X10*3/uL RBC (4.60-5.80) X10*6/uL Hgb (14.0-18.0) g/dl Hct (42-52) % MCV (80-98) fL MCH (27.0-33.0) pg MCHC (31.0-36.0) g/dl RDW (11.0-16.0) % Plt Count (160-400) X10*3/uL MPV (9.4-12.4) fL Immature Gran % (Auto) (0.0-0.4) % Neut % (Auto) (45-73) % Lymph % (Auto) (20-40) % Hendricks % (Auto) (2-11) % Eos % (Auto) (0-4) % Baso % (Auto) (0-2) % Lymph # (Auto) (1.2-4.9) X10*3/uL Hendricks # (Auto) (0.1-1.2) X10*3/uL Eos # (Auto) (0.0-0.4) X10*3/uL Baso # (Auto) (0.0-0.2) X10*3/uL Abs Immat Gran (auto) (0.00-0.03) X10*3/uL Absolute Neuts (auto) (2.0-8.3) X10*3/uL Absolute Nucleated RBC (0.0-0.012) X10*3/uL Nucleated RBC % (auto) (0.0-0.2) /100WBC PT 16.3 H (10.8-13.0) SEC INR 1.4 H (0.9-1.1) APTT 32.8 (24.1-38.0) SEC Sodium 138 (135-145) mmol/L Potassium 5.1 (3.3-5.1) mmol/l Chloride 102 (96-108) mmol/L Carbon Dioxide 28 (22-29) mmol/L Anion Gap 13 (12-20) BUN 26 H (9-16) mg/dL Creatinine 0.85 (0.5-1.4) mg/dL Estim Creat Clear Calc 55.2 Estimated GFR > 60 POC Glucose (60-115) mg/dL Random Glucose 292 H D (60-115) mg/dL Lactic Acid (0.5-2.0) mmol/L Lactic Acid Fup @ 2Hr (0.5-2.0) mmol/L Lactic Acid Fup @ 4Hr (0.5-2.0) mmol/L Calcium 8.1 L (8.4-10.2) mg/dL Magnesium (1.6-2.6) mg/dL Total Bilirubin 0.5 (0.0-1.0) mg/dL Direct Bilirubin 0.3 (0.0-0.5) mg/dL AST 16 D (5-37) U/L ALT 28 (0-40) U/L Alkaline Phosphatase 192 H (39-117) U/L Troponin I High Sens 14.9 D (<3.5-35.0) ng/L B-Natriuretic Peptide 319 H (<100) pg/mL Total Protein 5.0 L D (6.5-8.0) g/dL Albumin 2.7 L D (3.5-5.0) g/dL Lipase 46 (8-78) U/L Urine Color Urine Appearance Urine pH (5.0-8.0) Ur Specific Tripp (1.005-1.025) Urine Protein (NEG-TRACE) MG/DL Urine Glucose (UA) (NEG) MG/DL Urine Ketones (NEG) MG/DL Urine Blood (NEG) Urine Nitrite (NEG) Ur Leukocyte Esterase (NEG) Urine RBC (0) /HPF Urine WBC (0-4) /HPF Ur Squamous Epith Cells /LPF Urine Bacteria /LPF Urine Mucus /LPF Coronavirus (PCR) (Negative) Influenza Type A (PCR) (Negative) Influenza Type B (PCR) (Negative) RSV RNA Qual (PCR) (Negative) 08/25/20 08/26/20 08/26/20 Range/Units 21:42 00:19 00:19 WBC (4.8-10.8) X10*3/uL RBC (4.60-5.80) X10*6/uL Hgb (14.0-18.0) g/dl Hct (42-52) % MCV (80-98) fL MCH (27.0-33.0) pg MCHC (31.0-36.0) g/dl RDW (11.0-16.0) % Plt Count (160-400) X10*3/uL MPV (9.4-12.4) fL Immature Gran % (Auto) (0.0-0.4) % Neut % (Auto) (45-73) % Lymph % (Auto) (20-40) % Hendricks % (Auto) (2-11) % Eos % (Auto) (0-4) % Baso % (Auto) (0-2) % Lymph # (Auto) (1.2-4.9) X10*3/uL Hendricks # (Auto) (0.1-1.2) X10*3/uL Eos # (Auto) (0.0-0.4) X10*3/uL Baso # (Auto) (0.0-0.2) X10*3/uL Abs Immat Gran (auto) (0.00-0.03) X10*3/uL Absolute Neuts (auto) (2.0-8.3) X10*3/uL Absolute Nucleated RBC (0.0-0.012) X10*3/uL Nucleated RBC % (auto) (0.0-0.2) /100WBC PT (10.8-13.0) SEC INR (0.9-1.1) APTT (24.1-38.0) SEC Sodium (135-145) mmol/L Potassium (3.3-5.1) mmol/l Chloride (96-108) mmol/L Carbon Dioxide (22-29) mmol/L Anion Gap (12-20) BUN (9-16) mg/dL Creatinine (0.5-1.4) mg/dL Estim Creat Clear Calc Estimated GFR POC Glucose (60-115) mg/dL Random Glucose (60-115) mg/dL Lactic Acid (0.5-2.0) mmol/L Lactic Acid Fup @ 2Hr 2.6 H* (0.5-2.0) mmol/L Lactic Acid Fup @ 4Hr (0.5-2.0) mmol/L Calcium (8.4-10.2) mg/dL Magnesium 2.2 (1.6-2.6) mg/dL Total Bilirubin (0.0-1.0) mg/dL Direct Bilirubin (0.0-0.5) mg/dL AST (5-37) U/L ALT (0-40) U/L Alkaline Phosphatase (39-117) U/L Troponin I High Sens (<3.5-35.0) ng/L B-Natriuretic Peptide (<100) pg/mL Total Protein (6.5-8.0) g/dL Albumin (3.5-5.0) g/dL Lipase (8-78) U/L Urine Color YELLOW Urine Appearance HAZY Urine pH 6.0 (5.0-8.0) Ur Specific Tripp 1.020 (1.005-1.025) Urine Protein 1+ H (NEG-TRACE) MG/DL Urine Glucose (UA) 500 H (NEG) MG/DL Urine Ketones NEG (NEG) MG/DL Urine Blood 3+ H (NEG) Urine Nitrite NEG (NEG) Ur Leukocyte Esterase NEG (NEG) Urine RBC 30-49 H (0) /HPF Urine WBC 5-9 H (0-4) /HPF Ur Squamous Epith Cells NONE /LPF Urine Bacteria 1+ /LPF Urine Mucus 1+ /LPF Coronavirus (PCR) (Negative) Influenza Type A (PCR) (Negative) Influenza Type B (PCR) (Negative) RSV RNA Qual (PCR) (Negative) 08/26/20 08/26/20 08/26/20 Range/Units 02:33 02:33 02:40 WBC (4.8-10.8) X10*3/uL RBC (4.60-5.80) X10*6/uL Hgb (14.0-18.0) g/dl Hct (42-52) % MCV (80-98) fL MCH (27.0-33.0) pg MCHC (31.0-36.0) g/dl RDW (11.0-16.0) % Plt Count (160-400) X10*3/uL MPV (9.4-12.4) fL Immature Gran % (Auto) (0.0-0.4) % Neut % (Auto) (45-73) % Lymph % (Auto) (20-40) % Hendricks % (Auto) (2-11) % Eos % (Auto) (0-4) % Baso % (Auto) (0-2) % Lymph # (Auto) (1.2-4.9) X10*3/uL Hendricks # (Auto) (0.1-1.2) X10*3/uL Eos # (Auto) (0.0-0.4) X10*3/uL Baso # (Auto) (0.0-0.2) X10*3/uL Abs Immat Gran (auto) (0.00-0.03) X10*3/uL Absolute Neuts (auto) (2.0-8.3) X10*3/uL Absolute Nucleated RBC (0.0-0.012) X10*3/uL Nucleated RBC % (auto) (0.0-0.2) /100WBC PT (10.8-13.0) SEC INR (0.9-1.1) APTT (24.1-38.0) SEC Sodium (135-145) mmol/L Potassium (3.3-5.1) mmol/l Chloride (96-108) mmol/L Carbon Dioxide (22-29) mmol/L Anion Gap (12-20) BUN (9-16) mg/dL Creatinine (0.5-1.4) mg/dL Estim Creat Clear Calc Estimated GFR POC Glucose (60-115) mg/dL Random Glucose (60-115) mg/dL Lactic Acid (0.5-2.0) mmol/L Lactic Acid Fup @ 2Hr (0.5-2.0) mmol/L Lactic Acid Fup @ 4Hr 1.9 (0.5-2.0) mmol/L Calcium (8.4-10.2) mg/dL Magnesium (1.6-2.6) mg/dL Total Bilirubin (0.0-1.0) mg/dL Direct Bilirubin (0.0-0.5) mg/dL AST (5-37) U/L ALT (0-40) U/L Alkaline Phosphatase (39-117) U/L Troponin I High Sens 13.4 (<3.5-35.0) ng/L B-Natriuretic Peptide (<100) pg/mL Total Protein (6.5-8.0) g/dL Albumin (3.5-5.0) g/dL Lipase (8-78) U/L Urine Color Urine Appearance Urine pH (5.0-8.0) Ur Specific Tripp (1.005-1.025) Urine Protein (NEG-TRACE) MG/DL Urine Glucose (UA) (NEG) MG/DL Urine Ketones (NEG) MG/DL Urine Blood (NEG) Urine Nitrite (NEG) Ur Leukocyte Esterase (NEG) Urine RBC (0) /HPF Urine WBC (0-4) /HPF Ur Squamous Epith Cells /LPF Urine Bacteria /LPF Urine Mucus /LPF Coronavirus (PCR) NEGATIVE (Negative) Influenza Type A (PCR) NEGATIVE (Negative) Influenza Type B (PCR) NEGATIVE (Negative) RSV RNA Qual (PCR) NEGATIVE (Negative) <RAMA Carpio - Last Filed: 08/26/20 02:41> Lab Results 08/25/20 08/25/20 08/25/20 Range/Units 20:21 21:40 21:41 WBC 8.3 (4.8-10.8) X10*3/uL RBC 3.51 L (4.60-5.80) X10*6/uL Hgb 9.5 L (14.0-18.0) g/dl Hct 30.3 L (42-52) % MCV 86.3 (80-98) fL MCH 27.1 (27.0-33.0) pg MCHC 31.4 (31.0-36.0) g/dl RDW 17.5 H (11.0-16.0) % Plt Count 140 L (160-400) X10*3/uL MPV 10.5 (9.4-12.4) fL Immature Gran % (Auto) 0.8 H (0.0-0.4) % Neut % (Auto) 83.5 H (45-73) % Lymph % (Auto) 10.5 L (20-40) % Hendricks % (Auto) 5.2 (2-11) % Eos % (Auto) 0.0 (0-4) % Baso % (Auto) 0.0 (0-2) % Lymph # (Auto) 0.9 L (1.2-4.9) X10*3/uL Hendricks # (Auto) 0.4 (0.1-1.2) X10*3/uL Eos # (Auto) 0.0 (0.0-0.4) X10*3/uL Baso # (Auto) 0.0 (0.0-0.2) X10*3/uL Abs Immat Gran (auto) 0.07 H (0.00-0.03) X10*3/uL Absolute Neuts (auto) 6.9 (2.0-8.3) X10*3/uL Absolute Nucleated RBC 0.000 (0.0-0.012) X10*3/uL Nucleated RBC % (auto) 0.0 (0.0-0.2) /100WBC PT (10.8-13.0) SEC INR (0.9-1.1) APTT (24.1-38.0) SEC Sodium (135-145) mmol/L Potassium (3.3-5.1) mmol/l Chloride (96-108) mmol/L Carbon Dioxide (22-29) mmol/L Anion Gap (12-20) BUN (9-16) mg/dL Creatinine (0.5-1.4) mg/dL Estim Creat Clear Calc Estimated GFR POC Glucose 285 H (60-115) mg/dL Random Glucose (60-115) mg/dL Lactic Acid 3.2 H* (0.5-2.0) mmol/L Lactic Acid Fup @ 2Hr (0.5-2.0) mmol/L Lactic Acid Fup @ 4Hr (0.5-2.0) mmol/L Calcium (8.4-10.2) mg/dL Magnesium (1.6-2.6) mg/dL Total Bilirubin (0.0-1.0) mg/dL Direct Bilirubin (0.0-0.5) mg/dL AST (5-37) U/L ALT (0-40) U/L Alkaline Phosphatase (39-117) U/L Troponin I High Sens (<3.5-35.0) ng/L B-Natriuretic Peptide (<100) pg/mL Total Protein (6.5-8.0) g/dL Albumin (3.5-5.0) g/dL Lipase (8-78) U/L Urine Color Urine Appearance Urine pH (5.0-8.0) Ur Specific Tripp (1.005-1.025) Urine Protein (NEG-TRACE) MG/DL Urine Glucose (UA) (NEG) MG/DL Urine Ketones (NEG) MG/DL Urine Blood (NEG) Urine Nitrite (NEG) Ur Leukocyte Esterase (NEG) Urine RBC (0) /HPF Urine WBC (0-4) /HPF Ur Squamous Epith Cells /LPF Urine Bacteria /LPF Urine Mucus /LPF Coronavirus (PCR) (Negative) Influenza Type A (PCR) (Negative) Influenza Type B (PCR) (Negative) RSV RNA Qual (PCR) (Negative) 08/25/20 08/25/20 08/25/20 Range/Units 21:41 21:41 21:41 WBC (4.8-10.8) X10*3/uL RBC (4.60-5.80) X10*6/uL Hgb (14.0-18.0) g/dl Hct (42-52) % MCV (80-98) fL MCH (27.0-33.0) pg MCHC (31.0-36.0) g/dl RDW (11.0-16.0) % Plt Count (160-400) X10*3/uL MPV (9.4-12.4) fL Immature Gran % (Auto) (0.0-0.4) % Neut % (Auto) (45-73) % Lymph % (Auto) (20-40) % Hendricks % (Auto) (2-11) % Eos % (Auto) (0-4) % Baso % (Auto) (0-2) % Lymph # (Auto) (1.2-4.9) X10*3/uL Hendricks # (Auto) (0.1-1.2) X10*3/uL Eos # (Auto) (0.0-0.4) X10*3/uL Baso # (Auto) (0.0-0.2) X10*3/uL Abs Immat Gran (auto) (0.00-0.03) X10*3/uL Absolute Neuts (auto) (2.0-8.3) X10*3/uL Absolute Nucleated RBC (0.0-0.012) X10*3/uL Nucleated RBC % (auto) (0.0-0.2) /100WBC PT 16.3 H (10.8-13.0) SEC INR 1.4 H (0.9-1.1) APTT 32.8 (24.1-38.0) SEC Sodium 138 (135-145) mmol/L Potassium 5.1 (3.3-5.1) mmol/l Chloride 102 (96-108) mmol/L Carbon Dioxide 28 (22-29) mmol/L Anion Gap 13 (12-20) BUN 26 H (9-16) mg/dL Creatinine 0.85 (0.5-1.4) mg/dL Estim Creat Clear Calc 55.2 Estimated GFR > 60 POC Glucose (60-115) mg/dL Random Glucose 292 H D (60-115) mg/dL Lactic Acid (0.5-2.0) mmol/L Lactic Acid Fup @ 2Hr (0.5-2.0) mmol/L Lactic Acid Fup @ 4Hr (0.5-2.0) mmol/L Calcium 8.1 L (8.4-10.2) mg/dL Magnesium (1.6-2.6) mg/dL Total Bilirubin 0.5 (0.0-1.0) mg/dL Direct Bilirubin 0.3 (0.0-0.5) mg/dL AST 16 D (5-37) U/L ALT 28 (0-40) U/L Alkaline Phosphatase 192 H (39-117) U/L Troponin I High Sens 14.9 D (<3.5-35.0) ng/L B-Natriuretic Peptide 319 H (<100) pg/mL Total Protein 5.0 L D (6.5-8.0) g/dL Albumin 2.7 L D (3.5-5.0) g/dL Lipase 46 (8-78) U/L Urine Color Urine Appearance Urine pH (5.0-8.0) Ur Specific Tripp (1.005-1.025) Urine Protein (NEG-TRACE) MG/DL Urine Glucose (UA) (NEG) MG/DL Urine Ketones (NEG) MG/DL Urine Blood (NEG) Urine Nitrite (NEG) Ur Leukocyte Esterase (NEG) Urine RBC (0) /HPF Urine WBC (0-4) /HPF Ur Squamous Epith Cells /LPF Urine Bacteria /LPF Urine Mucus /LPF Coronavirus (PCR) (Negative) Influenza Type A (PCR) (Negative) Influenza Type B (PCR) (Negative) RSV RNA Qual (PCR) (Negative) 08/25/20 08/26/20 08/26/20 Range/Units 21:42 00:19 00:19 WBC (4.8-10.8) X10*3/uL RBC (4.60-5.80) X10*6/uL Hgb (14.0-18.0) g/dl Hct (42-52) % MCV (80-98) fL MCH (27.0-33.0) pg MCHC (31.0-36.0) g/dl RDW (11.0-16.0) % Plt Count (160-400) X10*3/uL MPV (9.4-12.4) fL Immature Gran % (Auto) (0.0-0.4) % Neut % (Auto) (45-73) % Lymph % (Auto) (20-40) % Hendricks % (Auto) (2-11) % Eos % (Auto) (0-4) % Baso % (Auto) (0-2) % Lymph # (Auto) (1.2-4.9) X10*3/uL Hendricks # (Auto) (0.1-1.2) X10*3/uL Eos # (Auto) (0.0-0.4) X10*3/uL Baso # (Auto) (0.0-0.2) X10*3/uL Abs Immat Gran (auto) (0.00-0.03) X10*3/uL Absolute Neuts (auto) (2.0-8.3) X10*3/uL Absolute Nucleated RBC (0.0-0.012) X10*3/uL Nucleated RBC % (auto) (0.0-0.2) /100WBC PT (10.8-13.0) SEC INR (0.9-1.1) APTT (24.1-38.0) SEC Sodium (135-145) mmol/L Potassium (3.3-5.1) mmol/l Chloride (96-108) mmol/L Carbon Dioxide (22-29) mmol/L Anion Gap (12-20) BUN (9-16) mg/dL Creatinine (0.5-1.4) mg/dL Estim Creat Clear Calc Estimated GFR POC Glucose (60-115) mg/dL Random Glucose (60-115) mg/dL Lactic Acid (0.5-2.0) mmol/L Lactic Acid Fup @ 2Hr 2.6 H* (0.5-2.0) mmol/L Lactic Acid Fup @ 4Hr (0.5-2.0) mmol/L Calcium (8.4-10.2) mg/dL Magnesium 2.2 (1.6-2.6) mg/dL Total Bilirubin (0.0-1.0) mg/dL Direct Bilirubin (0.0-0.5) mg/dL AST (5-37) U/L ALT (0-40) U/L Alkaline Phosphatase (39-117) U/L Troponin I High Sens (<3.5-35.0) ng/L B-Natriuretic Peptide (<100) pg/mL Total Protein (6.5-8.0) g/dL Albumin (3.5-5.0) g/dL Lipase (8-78) U/L Urine Color YELLOW Urine Appearance HAZY Urine pH 6.0 (5.0-8.0) Ur Specific Tripp 1.020 (1.005-1.025) Urine Protein 1+ H (NEG-TRACE) MG/DL Urine Glucose (UA) 500 H (NEG) MG/DL Urine Ketones NEG (NEG) MG/DL Urine Blood 3+ H (NEG) Urine Nitrite NEG (NEG) Ur Leukocyte Esterase NEG (NEG) Urine RBC 30-49 H (0) /HPF Urine WBC 5-9 H (0-4) /HPF Ur Squamous Epith Cells NONE /LPF Urine Bacteria 1+ /LPF Urine Mucus 1+ /LPF Coronavirus (PCR) (Negative) Influenza Type A (PCR) (Negative) Influenza Type B (PCR) (Negative) RSV RNA Qual (PCR) (Negative) 08/26/20 08/26/20 08/26/20 Range/Units 02:33 02:33 02:40 WBC (4.8-10.8) X10*3/uL RBC (4.60-5.80) X10*6/uL Hgb (14.0-18.0) g/dl Hct (42-52) % MCV (80-98) fL MCH (27.0-33.0) pg MCHC (31.0-36.0) g/dl RDW (11.0-16.0) % Plt Count (160-400) X10*3/uL MPV (9.4-12.4) fL Immature Gran % (Auto) (0.0-0.4) % Neut % (Auto) (45-73) % Lymph % (Auto) (20-40) % Hendricks % (Auto) (2-11) % Eos % (Auto) (0-4) % Baso % (Auto) (0-2) % Lymph # (Auto) (1.2-4.9) X10*3/uL Hendricks # (Auto) (0.1-1.2) X10*3/uL Eos # (Auto) (0.0-0.4) X10*3/uL Baso # (Auto) (0.0-0.2) X10*3/uL Abs Immat Gran (auto) (0.00-0.03) X10*3/uL Absolute Neuts (auto) (2.0-8.3) X10*3/uL Absolute Nucleated RBC (0.0-0.012) X10*3/uL Nucleated RBC % (auto) (0.0-0.2) /100WBC PT (10.8-13.0) SEC INR (0.9-1.1) APTT (24.1-38.0) SEC Sodium (135-145) mmol/L Potassium (3.3-5.1) mmol/l Chloride (96-108) mmol/L Carbon Dioxide (22-29) mmol/L Anion Gap (12-20) BUN (9-16) mg/dL Creatinine (0.5-1.4) mg/dL Estim Creat Clear Calc Estimated GFR POC Glucose (60-115) mg/dL Random Glucose (60-115) mg/dL Lactic Acid (0.5-2.0) mmol/L Lactic Acid Fup @ 2Hr (0.5-2.0) mmol/L Lactic Acid Fup @ 4Hr 1.9 (0.5-2.0) mmol/L Calcium (8.4-10.2) mg/dL Magnesium (1.6-2.6) mg/dL Total Bilirubin (0.0-1.0) mg/dL Direct Bilirubin (0.0-0.5) mg/dL AST (5-37) U/L ALT (0-40) U/L Alkaline Phosphatase (39-117) U/L Troponin I High Sens 13.4 (<3.5-35.0) ng/L B-Natriuretic Peptide (<100) pg/mL Total Protein (6.5-8.0) g/dL Albumin (3.5-5.0) g/dL Lipase (8-78) U/L Urine Color Urine Appearance Urine pH (5.0-8.0) Ur Specific Tripp (1.005-1.025) Urine Protein (NEG-TRACE) MG/DL Urine Glucose (UA) (NEG) MG/DL Urine Ketones (NEG) MG/DL Urine Blood (NEG) Urine Nitrite (NEG) Ur Leukocyte Esterase (NEG) Urine RBC (0) /HPF Urine WBC (0-4) /HPF Ur Squamous Epith Cells /LPF Urine Bacteria /LPF Urine Mucus /LPF Coronavirus (PCR) NEGATIVE (Negative) Influenza Type A (PCR) NEGATIVE (Negative) Influenza Type B (PCR) NEGATIVE (Negative) RSV RNA Qual (PCR) NEGATIVE (Negative) <Todd Valadez MD - Last Filed: 08/26/20 04:46> ECG Data Interpretation: Sinus rhythm. Ventricular rate 81. QRS duration 84. QTC 441. Negative STEMI <RAMA Carpio - Last Filed: 08/26/20 02:41> Discharge Plan Discharge Prescriptions: No Action amlodipine 5 mg Tablet 5 mg PO DAILY RF: 0 sodium polystyrene sulfonate 15 gram/60 mL Suspension 60 ml PO BID RF: 0 famotidine 20 mg Tablet 20 mg PO DAILY RF: 0 aspirin 81 mg Tablet 81 mg PO DAILY RF: 0 metoprolol succinate 25 mg Tablet Extended Release 24 Hr 25 mg PO DAILY RF: 0 albuterol 90 mcg/actuation Aerosol 90 mcg INHALATION Q4-5H PRN (Reason: Shortness Of Breath) RF: 0 guaifenesin [Mucinex] 600 mg Tablet Extended Release 12hr 600 mg PO BID RF: 0 prednisone 20 mg tablet 40 mg PO DAILY Qty: 8 RF: 0 <RAMA Carpio - Last Filed: 08/26/20 02:41>
[2020-08-25 21:57] LABS: Hematocrit 30.3 % (42-52); Hemoglobin 9.5 g/dl (14.0-18.0); Imm Gran Abs Auto 0.07 X10*3/uL (0.00-0.03); Imm Gran Pct Auto 0.8 % (0.0-0.4); Lymphocytes Absolute Auto 0.9 X10*3/uL (1.2-4.9); Lymphocytes Percent Auto 10.5 % (20-40); Mean Corpuscular HGB Conc 31.4 g/dl (31.0-36.0); Mean Corpuscular Hemoglobin 27.1 pg (27.0-33.0); Mean Corpuscular Volume 86.3 fL (80-98); Mean Platelet Volume 10.5 fL (9.4-12.4); Monocytes Absolute Auto 0.4 X10*3/uL (0.1-1.2); Monocytes Percent Auto 5.2 % (2-11); Neutrophils Absolute Auto 6.9 X10*3/uL (2.0-8.3); Neutrophils Percent Auto 83.5 % (45-73); Platelet Count 140 X10*3/uL (160-400); Red Blood Count 3.51 X10*6/uL (4.60-5.80); Red Cell Distribution Width 17.5 % (11.0-16.0); White Blood Count 8.3 X10*3/uL (4.8-10.8)
[2020-08-25 21:59] LABS: MANUAL DIFF FLAG NO
[2020-08-25 22:03] LABS: INTERNATIONAL NORM RATIO 1.4 (0.9-1.1); Prothrombin Time 16.3 SEC (10.8-13.0)
[2020-08-25 22:05] LABS: Partial Thromboplastin Time 32.8 SEC (24.1-38.0)
[2020-08-25 22:24] LABS: Magnesium 2.2 mg/dL (1.6-2.6)
[2020-08-25 22:25] LABS: Alanine Aminotransferase 28 U/L (0-40); Albumin Level 2.7 g/dL (3.5-5.0); Alkaline Phosphatase 192 U/L (39-117); Anion Gap 13 (12-20); Aspartate Amino Transferase 16 U/L (5-37); Bilirubin Total 0.5 mg/dL (0.0-1.0); Blood Urea Nitrogen 26 mg/dL (9-16); Calcium 8.1 mg/dL (8.4-10.2); Carbon Dioxide 28 mmol/L (22-29); Chloride 102 mmol/L (96-108); Creatinine Clr Calc Pharmacy 55.2; Estimated Glomerular Filt Rate > 60; Glucose Random 292 mg/dL (60-115); Potassium 5.1 mmol/l (3.3-5.1); Sodium 138 mmol/L (135-145)
[2020-08-25 22:30] VITALS: BP 113/81; PULSE 73; RESP 18; O2SAT 95
[2020-08-25 22:30] LABS: Lactic Acid 3.2 mmol/L (0.5-2.0)
[2020-08-25 22:32] LABS: B Type Natriuretic Peptide 319 pg/mL (<100); Troponin-I High Sensitivity 14.9 ng/L (<3.5-35.0)
[2020-08-25] MEDS: 0.9 % Sodium Chloride 500 ML IV (22:35)
[2020-08-25] MEDS: 0.9 % Sodium Chloride 1,000 ML 999 ML IV (23:42)
[2020-08-25 23:53] LABS: Reflex Lactate? Lactic Acid Added
[2020-08-26 00:25] LABS: Glucose Urine UA 500 MG/DL (NEG); Leukocyte Esterase Urine NEG (NEG); Nitrite Urine NEG (NEG); Urine Blood 3+ (NEG); Urine Ketones NEG (NEG); Urine Protein 1+ MG/DL (NEG-TRACE)
[2020-08-26 00:26] LABS: Appearance Urine HAZY; Color Urine YELLOW
[2020-08-26 00:33] LABS: Bacteria Urine 1+ /LPF; Mucus Urine 1+ /LPF; RBC Urine 30-49 /HPF (0); UACC CULT YES
[2020-08-26] MEDS: 0.9 % Sodium Chloride 500 ML IV (00:44)
[2020-08-26 00:48] LABS: ~Lactic Acid-LAB USE ONLY 2.6 mmol/L (0.5-2.0)
--- NOTE | 2020-08-26 00:59 | CT_ITS ---
EXAMINATION: CT ABDOMEN AND PELVIS WITH CONTRAST CLINICAL INFORMATION: Abdominal wall ecchymosis. Omitted from the supplied clinical information for this patient's study is a diagnosis of left renal cancer which was identified following review of multiple prior radiologic studies. COMPARISON: Chest CT from 08/20/2020. Abdominal and pelvic CT from 07/28/2018. TECHNIQUE: Contiguous axial thin section helical images of the abdomen and pelvis were performed following the administration of 85 mL of intravenous Omnipaque 350. The data set was reformatted in the coronal and sagittal planes and reviewed on an independent workstation. DLP: 500 mGy-cm. FINDINGS: There is a stable 2 cm oval mass within the posterior basal segment of the left lower lobe. There is dependent bibasilar atelectasis. The visualized portions of the heart are unremarkable. The liver is of normal size and attenuation without focal lesions nor intrahepatic biliary ductal dilation. There are several calculi within the gallbladder lumen. There is no gallbladder wall thickening, though there is pericholecystic fluid. The pancreas and adrenal glands are unremarkable. There is marked enlargement to the spleen which measures approximately 21.3 cm in greatest dimension. There is peripheral heterogeneous attenuation. There is more focal low attenuation within the inferior pole of the spleen. There is mild adjacent fat stranding about the lower pole and trace free fluid. The right kidney demonstrates normal enhancement following contrast demonstration. There is neither hydronephrosis nor nephrolithiasis. There are right renal cysts present. There has been progression in size and extent of a left upper pole renal mass measuring 8.6 cm. There is an additional discrete heterogeneously enhancing mass measuring approximately 7.1 cm within the region of the left renal pelvis. This abuts the abdominal aorta. There is near complete absence of the upper pole nephrogram. A normal nephrogram is present within the lower pole of left kidney. There is adjacent fat stranding. There is no abdominal free fluid. There is neither mesenteric nor retroperitoneal lymphadenopathy. There is extensive sigmoid diverticulosis without evidence of diverticulitis; otherwise, unremarkable unopacified loops of small and large bowel are identified. There is no pelvic free fluid. The urinary bladder is unremarkable. There is neither pelvic nor inguinal lymphadenopathy. Bone windows: Neither sclerotic nor lytic bone lesions are identified. CT/CT abdomen pelvis w con IMPRESSION: Marked splenomegaly with trace adjacent free fluid. There is heterogeneous enhancement to the spleen which is of uncertain significance. Metastatic disease cannot be excluded. Significant interval progression in known left renal cancer. (The diagnosis of known left renal cancer was not supplied with this requisition but was instead identified following review of multiple prior radiology reports.) There is fat stranding and trace free fluid about the left kidney. Cholelithiasis with pericholecystic fluid without significant gallbladder wall thickening. Stable left lower lobe pulmonary mass. Diverticulosis without evidence of diverticulitis. Automated exposure control (Care Dose) Adjustment of the mA and/or kv according to patient size (this includes techniques or standardized protocols for targeted exams where dose is matched to indication / reason for exam; i.e. extremities or head).
[2020-08-26] MEDS: iohexoL 350 MG/ML 100 ML INFUS..BTL 85 ML IV (01:22)
[2020-08-26 02:14] LABS: Bilirubin Direct 0.3 mg/dL (0.0-0.5); Lipase 46 U/L (8-78)
[2020-08-26 02:24] LABS: Reflex Lactate? 2 Y
--- NOTE | 2020-08-26 02:30 | US_ITS ---
EXAMINATION: ABDOMINAL ULTRASOUND LIMITED CLINICAL INFORMATION: Cholelithiasis. Concern for cholecystitis. COMPARISON: Same day abdominal and pelvic CT. TECHNIQUE: Real-time imaging of the right upper quadrant abdominal viscera. FINDINGS: PANCREAS: The visualized pancreatic head and body are normal in appearance. The remainder of the pancreas is obscured from visualization by the overlying bowel gas. LIVER: The liver is of normal size and echogenicity without focal lesions nor intrahepatic biliary ductal dilation. GALLBLADDER: There are multiple calculi within the gallbladder lumen. There is no wall thickening or pericholecystic fluid. COMMON BILE DUCT: Normal in caliber measuring 0.3 cm in diameter. RIGHT KIDNEY: There is a 2.1 cm cyst within the upper pole. No hydronephrosis. No renal calculi or focal parenchymal lesions. The kidney measures 11.8 cm in maximum dimension. FREE FLUID: None. US/US abdomen limited IMPRESSION: Cholelithiasis without evidence of cholecystitis.
[2020-08-26 03:04] LABS: ~Lactic Acid-LAB USE ONLY 1.9 mmol/L (0.5-2.0)
[2020-08-26 03:12] LABS: Troponin-I High Sensitivity 13.4 ng/L (<3.5-35.0)
[2020-08-26 03:23] LABS: Influenza A PCR NEGATIVE (Negative); Influenza B PCR NEGATIVE (Negative); Resp Syncy Virus RNA Qual PCR NEGATIVE (Negative); SARS COV2 PCR INHOUSE NEGATIVE (Negative)
[2020-08-26] MEDS: Piperacillin Sodium/Tazobactam 3.375 GM in 0.9 % Sodium Chloride 50 ML IV (03:38)
[2020-08-26 03:40] VITALS: BP 133/69; PULSE 63; RESP 18; O2SAT 95
== END 2020-08-26 05:46 | disposition home or self-care (01) ==
PROVIDERS: Physician Assistant; Emergency Provider Internal Medicine
DX: R53.1 Weakness (principal); K80.20 Calculus of gallbladder without cholecystitis without obstruction; Z20.828 Contact with and (suspected) exposure to other viral communicable diseases; E87.2 Acidosis; R60.0 Localized edema; E11.9 Type 2 diabetes mellitus without complications; I10 Essential (primary) hypertension; J44.9 Chronic obstructive pulmonary disease, unspecified; Z85.51 Personal history of malignant neoplasm of bladder; Z85.528 Personal history of other malignant neoplasm of kidney; Z85.118 Personal history of other malignant neoplasm of bronchus and lung; Z87.442 Personal history of urinary calculi; Z87.891 Personal history of nicotine dependence
CPT/HCPCS: 0241U; 36415; 70450; 71045; 74177; 76705; 80053; 80076; 81001; 82248; 82947; 83605; 83690; 83735; 83880; 84484; 85025; 85610; 85730; 87040; 87086; 93005; 96361; 96365; 99284; J2543; Q9967

== ENCOUNTER 2020-09-22 11:54 | Emergency (ER) | payer MEDICARE, OTHER, SELFPAY ==
[2020-09-22 12:06] VITALS: BP 124/66; PULSE 91; RESP 16; TEMP 36.6; O2SAT 99; BMI 21.1
--- NOTE | 2020-09-22 12:13 | US_ITS ---
EXAMINATION: US SCROTUM CLINICAL INFORMATION: Right testicle tenderness. COMPARISON: None TECHNIQUE: A sonogram of the scrotum was performed assessing forrester-scale appearance and color Doppler flow. Spectral Doppler analysis of the arterial and venous flow were performed in the testes bilaterally. FINDINGS: RIGHT: Right testicle measures 4 x 1.8 x 1.9 cm, volume 7 mL. No focal testicular parenchymal lesions are visualized. There is a small posterior calcification in the right testicle. Spectral Doppler analysis of the arterial and venous flow is normal in the right testis. The right epididymis is enlarged. There is increased flow to the right epididymis. Findings are questionable for epididymitis. There are small calcifications in the tail of the right epididymis. There is a 6 mm right epididymal head cyst.. No right hydrocele or varicocele is seen. Right epididymal Doppler flow is increased. LEFT: Left testicle measures 3.9 x 1.9 x 2.5 cm, volume 10 mL. No focal testicular parenchymal lesions are visualized. Spectral Doppler analysis of the arterial and venous flow is normal in the left testis. Left epididymal head is normal in size. The left epididymal tail is enlarged. This contains multiple calcifications and demonstrates slight interval increase in flow. Findings are questionable for epididymitis as well. No left hydrocele or varicocele is seen. Left epididymal Doppler flow is normal. US/US scrotum doppler IMPRESSION: Enlarged right epididymis with increased vascularity suggestive of epididymitis. Question epididymitis of the tail of the left epididymis as well. Small right epididymal head cyst.
[2020-09-22 12:26] LABS: MANUAL DIFF FLAG NO
[2020-09-22 12:31] LABS: Basophils Percent Auto 0.2 % (0-2); Eosinophils Percent Auto 0.2 % (0-4); Hematocrit 33.3 % (42-52); Hemoglobin 10.7 g/dl (14.0-18.0); Imm Gran Abs Auto 0.06 X10*3/uL (0.00-0.03); Imm Gran Pct Auto 0.5 % (0.0-0.4); Lymphocytes Absolute Auto 1.1 X10*3/uL (1.2-4.9); Lymphocytes Percent Auto 9.7 % (20-40); Mean Corpuscular HGB Conc 32.1 g/dl (31.0-36.0); Mean Corpuscular Hemoglobin 27.5 pg (27.0-33.0); Mean Corpuscular Volume 85.6 fL (80-98); Mean Platelet Volume 9.8 fL (9.4-12.4); Monocytes Percent Auto 9.2 % (2-11); Neutrophils Absolute Auto 8.8 X10*3/uL (2.0-8.3); Neutrophils Percent Auto 80.2 % (45-73); Platelet Count 213 X10*3/uL (160-400); Red Blood Count 3.89 X10*6/uL (4.60-5.80); Red Cell Distribution Width 17.5 % (11.0-16.0); White Blood Count 10.9 X10*3/uL (4.8-10.8)
--- NOTE | 2020-09-22 12:35 | ED_ITS ---
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 He is completely asymptomatic and denies dysuria, urinary frequency, hesitancy, abdominal pain, N/V, fever, chills. He was last seen by Dr. Tilley in Jul 2010 and was going well. Last CT scan was in May 2019 at [facility] and no renal masses were noted. Related Data Home Medications Medication Instructions Recorded Confirmed albuterol 90 mcg INHALATION Q4-5H PRN 08/20/20 08/20/20 famotidine 20 mg PO DAILY 08/20/20 08/20/20 guaifenesin [Mucinex] 600 mg PO BID 08/20/20 08/20/20 sodium polystyrene sulfonate 60 ml PO BID 08/20/20 08/20/20 Previous Rx's Medication Instructions Recorded prednisone 40 mg PO DAILY #8 tab 08/22/20 amlodipine 5 mg tablet 5 mg PO DAILY #90 tab 09/12/20 metoprolol succinate 25 mg 25 mg PO DAILY #90 tab 09/12/20 tablet,extended release 24 hr aspirin 81 mg tablet 81 mg PO DAILY #90 tab 09/19/20 levofloxacin 500 mg PO DAILY 9 Days #9 tab 09/22/20 Allergies Allergy/AdvReac Type Severity Reaction Status Date / Time No Known Allergies Allergy Verified 08/25/20 20:24 [No Known Allergies*] Review of Systems Review of Systems: Constitutional: No Fever, No Chills ENT/Mouth: No sore throat, No Rhinorrhea, No Swallowing Difficulty Cardiovascular: No Chest Pain, No SOB, No Orthopnea, No Edema Respiratory: No Cough, No Sputum, No Wheezing, No dyspnea Gastrointestinal: No Nausea, No Vomiting, No Diarrhea, No abdominal Pain, No Hematochezia, No Melena Genitourinary: No Dysuria, No Urinary Frequency, + Hematuria Musculoskeletal: No joint pain, No Myalgias Skin: No Skin Lesions, No rash Neuro: No Weakness, No Numbness, No Dizziness, No Headache Psych: No Anxiety/Panic, No Depression Heme/Lymph: No Bruising, No Lymphadenopathy Endocrine: No Polyuria, No Polydipsia [facility] Past Medical History Attestation statement: The following information was validated with the patient. Medical History Cardiac arrhythmia Cirrhosis COPD (chronic obstructive pulmonary disease) Diabetes Emphysema of lung Heart block AV second degree History of bladder cancer HTN (hypertension) Kidney stones Legally blind Macular degeneration Renal carcinoma Respiratory failure Surgical History No pertinent past surgical history Family History Family History Father No problems noted. Mother No problems noted. Social History Social History Household Members: Spouse Housing: Assisted Living Facility Alcohol intake: never Smoking Status: Former smoker Smoked in Last 30 Days: No Use of substances other than those prescribed or required for medical reasons: No Advance Directives: No Advance Directives Information Provided: Yes service: Yes Current occupational status: retired Physical Exam Vital Signs: Vital Signs: Last Vital Signs Temp 97.8 F 09/22/20 12:06 Pulse 81 09/22/20 14:26 Resp 16 09/22/20 14:26 BP 107/64 09/22/20 14:26 Pulse Ox 98 09/22/20 14:26 Body Mass Index 21.1 Appearance: Alert. Oriented X3. No acute distress. Eyes: Pupils equal, round and reactive to light. ENT: Pharynx normal. Neck: Normal inspection. Neck supple. CVS: Normal heart rate and rhythm. Pulses normal. Respiratory: No respiratory distress. Breath sounds normal. Abdomen: Soft and nontender. no suprapubic tenderness +BS x4 : normal external genitalia, mild right testicular tenderness superiorly, no palpable mass. no skin changes. foreskin retracts easily and no penile drainage or bleeding noted. Skin: Skin warm and dry. Normal skin color. Poor skin turgor. Extremities: No lower extremity edema. Neuro: Oriented X 3. Non-focal Course Course Course Narrative: 85 y/o male with history of untreated metastatic RCC presenting with reports of hematuria. He is asymptomatic. On exam mild right testicular tenderness, will get testicular U/S, UA, urine cytology. Reevaluation(s) Reevaluation #1: Upon review of recordsd patient has not had a CT scan of his abd since 2019 - no renal masses noted at that time. Will reassess with dry CT now. Labs reviewed - mild hyperkalemia noted, 5.4. Will give gentle IVF, appears clinically dry. UA is tea colored without clots. PVR 30cc. Scrotal U/S showing epididymitis. Will treat with Levaquin. Not septic. Reevaluation #2: CT scan showing large left renal mass with severe compression of upper pole, mild compression of mid/lower poles, hyperdense material in the bladder. Results were TT to Dr. Dunham from Urology who has seen the patient in the past. Kidney function is up slightly to 1.04 from 0.85 but remains within normal limits and he is urinating easily. Reevaluation #3: Dr. Dunham recommends follow up in the office. Results were discussed with the patient - he will follow up with Dr. Lopez tomorrow who is his PCP/Oncologist. He is stable for discharge with treatment for epididymitis. MDM - Male Genitourinary Lab Data Result diagrams: 09/22/20 12:21 09/22/20 12:21 Labs: Lab Results 09/22/20 09/22/20 09/22/20 Range/Units 12:21 12:21 13:22 WBC 10.9 H (4.8-10.8) X10*3/uL RBC 3.89 L (4.60-5.80) X10*6/uL Hgb 10.7 L (14.0-18.0) g/dl Hct 33.3 L (42-52) % MCV 85.6 (80-98) fL MCH 27.5 (27.0-33.0) pg MCHC 32.1 (31.0-36.0) g/dl RDW 17.5 H (11.0-16.0) % Plt Count 213 D (160-400) X10*3/uL MPV 9.8 (9.4-12.4) fL Immature Gran % (Auto) 0.5 H (0.0-0.4) % Neut % (Auto) 80.2 H (45-73) % Lymph % (Auto) 9.7 L (20-40) % Bollinger % (Auto) 9.2 (2-11) % Eos % (Auto) 0.2 (0-4) % Baso % (Auto) 0.2 (0-2) % Lymph # (Auto) 1.1 L (1.2-4.9) X10*3/uL Bollinger # (Auto) 1.0 (0.1-1.2) X10*3/uL Eos # (Auto) 0.0 (0.0-0.4) X10*3/uL Baso # (Auto) 0.0 (0.0-0.2) X10*3/uL Abs Immat Gran (auto) 0.06 H (0.00-0.03) X10*3/uL Absolute Neuts (auto) 8.8 H (2.0-8.3) X10*3/uL Absolute Nucleated RBC 0.000 (0.0-0.012) X10*3/uL Nucleated RBC % (auto) 0.0 (0.0-0.2) /100WBC Sodium 141 (135-145) mmol/L Potassium 5.4 H (3.3-5.1) mmol/l Chloride 104 (96-108) mmol/L Carbon Dioxide 25 (22-29) mmol/L Anion Gap 17 (12-20) BUN 21 H (9-16) mg/dL Creatinine 1.04 (0.5-1.4) mg/dL Estim Creat Clear Calc 53.3 Estimated GFR > 60 Random Glucose 96 D (60-115) mg/dL Calcium 8.3 L (8.4-10.2) mg/dL Magnesium 2.1 (1.6-2.6) mg/dL Total Bilirubin 1.3 H (0.0-1.0) mg/dL Direct Bilirubin 0.6 H (0.0-0.5) mg/dL AST 8 D (5-37) U/L ALT 7 (0-40) U/L Alkaline Phosphatase 113 D (39-117) U/L Total Protein 5.7 L (6.5-8.0) g/dL Albumin 2.9 L (3.5-5.0) g/dL Urine Color BROWN Urine Appearance CLOUDY Urine pH 6.0 (5.0-8.0) Ur Specific [place] 1.020 (1.005-1.025) Urine Protein 2+ H (NEG-TRACE) MG/DL Urine Glucose (UA) NEG (NEG) MG/DL Urine Ketones 5 (NEG) MG/DL Urine Blood 3+ H (NEG) Urine Nitrite NEG (NEG) Ur Leukocyte Esterase NEG (NEG) Urine RBC TNTC H (0) /HPF Urine WBC 1-4 (0-4) /HPF Ur Squamous Epith Cells NONE /LPF Urine Bacteria NONE /LPF Discharge Plan Discharge Clinical Impression: Epididymitis, Kidney malignancy Patient Disposition: [facility] Instructions: Epididymitis (ED), Renal Cancer (DC) Additional Instructions: Your scrotal ultasound showed inflammation and possible infection of the structure above your right testicle. You were given a dose of IV antibiotics while you were in the ER. Take the prescribed antibiotic starting tomorrow for [address] scan showed a large left kidney tumor, consistent with your known kidney cancer. Follow up with Dr. Dunham from Urology. Follow up with Dr. Lopez from Oncology. Stay hydrated and drink plenty of water. If you develop blood clots in your urine, have difficulty urinating or develop any other concerning symptom call your doctor or come back to the ER for further evaluation. Prescriptions: New levofloxacin 500 mg tablet 500 mg PO DAILY 9 Days Qty: 9 RF: 0 No Action amlodipine 5 mg tablet 5 mg PO DAILY Qty: 90 RF: 8 metoprolol succinate 25 mg tablet extended release 24 hr 25 mg PO DAILY Qty: 90 RF: 8 aspirin 81 mg tablet 81 mg PO DAILY Qty: 90 RF: 8 sodium polystyrene sulfonate 15 gram/60 mL Suspension 60 ml PO BID RF: 0 famotidine 20 mg Tablet 20 mg PO DAILY RF: 0 albuterol 90 mcg/actuation Aerosol 90 mcg INHALATION Q4-5H PRN (Reason: Shortness Of Breath) RF: 0 guaifenesin [Mucinex] 600 mg Tablet Extended Release 12hr 600 mg PO BID RF: 0 prednisone 20 mg tablet 40 mg PO DAILY Qty: 8 RF: 0 Referrals: Colin Dunham MD [Physician] - 2 days (RCC, bladder mass?, epididymitis ) Daniela Lopez MD [Physician] - 2 days (RCC)
[2020-09-22 12:52] LABS: Alanine Aminotransferase 7 U/L (0-40); Albumin Level 2.9 g/dL (3.5-5.0); Alkaline Phosphatase 113 U/L (39-117); Anion Gap 17 (12-20); Aspartate Amino Transferase 8 U/L (5-37); Bilirubin Direct 0.6 mg/dL (0.0-0.5); Bilirubin Total 1.3 mg/dL (0.0-1.0); Blood Urea Nitrogen 21 mg/dL (9-16); Calcium 8.3 mg/dL (8.4-10.2); Carbon Dioxide 25 mmol/L (22-29); Chloride 104 mmol/L (96-108); Creatinine Clr Calc Pharmacy 53.3; Estimated Glomerular Filt Rate > 60; Glucose Random 96 mg/dL (60-115); Magnesium 2.1 mg/dL (1.6-2.6); Potassium 5.4 mmol/l (3.3-5.1); Sodium 141 mmol/L (135-145); Total Protein 5.7 g/dL (6.5-8.0)
--- NOTE | 2020-09-22 13:16 | CT_ITS ---
EXAMINATION: CT ABDOMEN AND PELVIS WITHOUT CONTRAST CLINICAL INFORMATION: Untreated RCC. Hematuria COMPARISON: None TECHNIQUE: Multidetector volumetric imaging was performed from the superior aspect of the liver through the pubic symphysis. Sagittal and coronal reformatted images were obtained on the technologist's workstation. This CT examination was performed using dose optimization techniques as appropriate, variously including the following: *Automated exposure control *Adjustment of mA and/or kV according to patient size (this includes techniques or standardized protocols for targeted exams where dose is matched to indication/reason for exam; i.e. extremities or head) *Use of iterative reconstruction technique DLP: 445 mGy-cm FINDINGS: LUNG BASES: Mild emphysematous changes of both lung bases seen. There is a moderate size left lower lobe 2.7 cm in nodule. Prominent nodular reticular interstitial changes seen in left lung base. There is minimal left posterior pleural thickening The heart size is normal. LIVER, GALLBLADDER, AND BILIARY TREE: The liver is normal in size, shape, and attenuation. No focal hepatic lesion or biliary ductal dilatation is present. The gallbladder is distended multiple radiopaque stones. No wall thickening seen. PANCREAS: Unremarkable. SPLEEN: The spleen is enlarged with no focal lesion seen. It measures 17.6 cm. ADRENAL GLANDS: Unremarkable. KIDNEYS AND URETERS: The right kidney is normal size, shape and position. There is anechoic 1.8 cm cyst. A small vessel cyst is seen in the upper pole right kidney. No radiopaque calculi noted. There is a large heterogenous mass in the upper pole left kidney measuring 8.80 x 7.0 x 8.3 cm. There is severe compression of the upper pole of mild mid and lower pole hydronephrosis. BLADDER: There is a hyperdense material seen in the left aspect of bladder new since the previous study. Whether this represents hemorrhage or hyperdense urine or mass is questioned. GASTROINTESTINAL TRACT: Scattered stool and gas seen throughout the colon without distention. The small bowel loops are normal caliber. The appendix is not visualized. The stomach is nondistended and appears unremarkable. ABDOMINAL WALL: No significant hernia is appreciated. LYMPH NODES: There is a large left parotid lymph node measuring 5.9 x 5.0 cm on axial image 35/3. Same lymph node measured 5.4 x 4.8 cm on the previous exam at the same level on 08/26/2020. There are several additional lymph nodes seen in the retroperitoneum. VASCULAR: The abdominal aorta is atherosclerotic and calcified. 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 Heavily calcified common iliac arteries are of normal caliber. There is extensive vascular calcification of a tortuous splenic artery PELVIC VISCERA: There is moderate stool in the reticular seen and sigmoid colon without diverticulitis. No free fluid or free air seen. No abnormal pelvic lymph nodes seen. OSSEOUS STRUCTURES: There is degenerative disc changes and spondylosis L4-L5 and L5-S1 disc levels. No visible fracture or lytic process seen. CT/CT abdomen pelvis wo con IMPRESSION: Large left upper lobe mass which is slightly increased. There is a heterogenous enlarged left para-aortic lymph node which is also increased. There are several additional retroperitoneal lymph nodes seen. There are right renal cysts but no solid mass seen. Moderate constipation scattered diverticuli but no diverticulitis. Cholelithiasis without wall thickening. Splenomegaly and likely mild hepatomegaly. Nodule left lower lobe likely metastatic with left lower lobe atelectasis and chronic scarring and minimal posterior pleural thickening. There is underlying emphysema.
[2020-09-22] MEDS: 0.9 % Sodium Chloride 1,000 ML 999 ML IVCONT (13:20)
[2020-09-22 13:41] LABS: Glucose Urine UA NEG (NEG); Nitrite Urine NEG (NEG); Urine Blood 3+ (NEG); Urine Ketones 5 MG/DL (NEG); Urine Protein 2+ MG/DL (NEG-TRACE)
[2020-09-22 13:50] LABS: Appearance Urine CLOUDY; Color Urine BROWN; Leukocyte Esterase Urine NEG (NEG)
[2020-09-22 13:51] LABS: RBC Urine TNTC /HPF (0)
[2020-09-22 14:26] VITALS: BP 107/64; PULSE 81; RESP 16; O2SAT 98
[2020-09-22] MEDS: levoFLOXacin/D5W 500 MG/100 ML PIGGYBACK 100 MG IV (14:33)
[2020-09-22 15:46] VITALS: BP 118/55; PULSE 91; RESP 18; TEMP 36.4; O2SAT 93
== END 2020-09-22 17:16 | disposition skilled nursing facility (03) ==
PROVIDERS: Physician Assistant; Emergency Provider Emergency Medicine
DX: N45.1 Epididymitis (principal); D49.512 Neoplasm of unspecified behavior of left kidney; E11.9 Type 2 diabetes mellitus without complications; I11.0 Hypertensive heart disease with heart failure; I50.9 Heart failure, unspecified; J44.9 Chronic obstructive pulmonary disease, unspecified; Z99.81 Dependence on supplemental oxygen; Z87.442 Personal history of urinary calculi; Z85.51 Personal history of malignant neoplasm of bladder
CPT/HCPCS: 36415; 74176; 76870; 80048; 80076; 81001; 83735; 85025; 93975; 96361; 96365; 99284; J1956